=== PATIENT | female | born 1955 | race Caucasian/White ===

== ENCOUNTER 2016-06-15 21:38 | Emergency (ER) | payer BC ==
[2016-06-15 22:29] VITALS: BP 147/99
--- NOTE | 2016-06-15 23:47 | UC ---
General HPI - HPI Summary HPI Summary: The patient comes in today for: 1. Post prandia nausea: Onset: 6 months Palliative/provocative: Rich foods. Quality: Nausea. Region: GI Severity: 0/10 Time: Comes and goes. Associated symptoms: Previous evaluation: None. Event: She had chicken parmeasan tonight. Rich foods will make it worse. She will have nausea after she eats. She will not have any abdominal pain at that time. She ate at 5:30 PM. She is not having nausea at this time. The nausea will last for 5-6 hours and go away. She tolerates foods which are not rich. Fevers: None. Unexpected weight: She does not think so, but the son thinks that she has lost weight. PCP: Cony Barlow. Last visit (physical) in August of 2015 and in Feb for shingles. The patient was very bad before, but by the time I was able to see her, she was feeling back to her normal self. * - History of Current Complaint Chief Complaint: UCGI Stated Complaint: VOMITING Time Seen by Provider: 06/15/16 23:16 Hx Obtained From: Patient - Allergy/Home Medications Allergies/Adverse Reactions: Allergies Allergy/AdvReac Type Severity Reaction Status Date / Time Omeprazole Allergy Severe Airway Verified 09/23/13 23:32 Obstruction Sulfamethoxazole Allergy Intermediate Blisters Verified 09/23/13 23:32 w/Trimethoprim [From Bactrim] PMH/Surg Hx/FS Hx/Imm Hx Previously Healthy: No Endocrine History Of: Denies: Diabetes, Thyroid Disease, Hyperthyroidism, Hypothyroidism, Dyslipidemia Cardiovascular History Of: Denies: Cardiac Disorders, Hypertension, Pacemaker/ICD, Myocardial Infarction , Congestive Heart Failure, Atrial Fibrillation, Deep Vein Thrombosis, Bleeding Disorders Respiratory History Of: Denies: COPD, Asthma, Bronchitis, Pneumonia, Pulmonary Embolism GI/ History Of: Reports: Gastroesophageal Reflux Denies: Ulcer, Gastrointestinal Bleed, Gall Bladder Disease, Kidney Stones, Diverticulitis, Renal Disease, Urosepsis Neurological History Of: Reports: Seizures - When she was younger, but not on medication since her 20's by her report., Migraine - She is on Imetrix. Denies: TIA, CVA, Dementia Psychological History Of: Denies: Anxiety, Depression, Bipolar Disorder, Schizophrenia, Post Traumatic Stress Disorder Cancer History Of: Denies: Lung Cancer, Colorectal Cancer, Breast Cancer, Prostate Cancer, Cervical Cancer - Surgical History Surgical History: Yes Surgery Procedure, Year, and Place: SINUS 12+ YEARS AGO. ROOT CANAL 2 YEARS AGO. C SECTION 1974. HYSTERECTOMY LATE . HYATAL HERNIA REPAIR - Family History Known Family History: Positive: Cardiac Disease Negative: Hypertension - Social History Occupation: Employed Full-time Alcohol Use: Weekly Alcohol Amount: 1-2 glasses on weekend Substance Use Type: None Smoking Status (MU): Never Smoked Tobacco Review of Systems Constitutional: Negative Skin: Negative Eyes: Negative ENT: Negative Respiratory: Negative Cardiovascular: Negative Gastrointestinal: Vomiting Genitourinary: Negative All Other Systems Reviewed And Are Negative: Yes Physical Exam Triage Information Reviewed: Yes Appearance: Well-Appearing, No Pain Distress, Well-Nourished Vital Signs: Initial Vital Signs Temp 97.1 F 06/15/16 22:22 Pulse 77 06/15/16 22:22 Resp 18 06/15/16 22:22 BP 147/99 06/15/16 22:22 Pulse Ox 98 06/15/16 22:22 Vital Signs Reviewed: Yes Eyes: Positive: Conjunctiva Clear. Negative: Discharge ENT: Positive: Hearing grossly normal. Negative: Pharyngeal erythema, Nasal congestion, Nasal drainage, TM bulging, TM dull, TM red, Tonsillar swelling, Tonsillar exudate Dental: Negative: Gross Decay/Caries @, Dental Fracture @ Neck: Positive: Supple, Nontender, No Lymphadenopathy. Negative: Nuchal Rigidity Respiratory: Positive: Chest non-tender, Lungs clear, No respiratory distress. Negative: Rhonchi, Wheezing Cardiovascular: Positive: RRR, No Murmur Abdomen Description: Positive: Nontender, No Organomegaly, Soft. Negative: Distended, Guarding, Pulsatile Mass Musculoskeletal: Positive: Strength Intact, ROM Intact, No Edema Neurological: Positive: Alert, Muscle Tone Normal Psychological: Positive: Age Appropriate Behavior, Consolable Skin: Negative: rashes, breakdown Course/Dx - Course Course Of Treatment: Patient was feeling much better the time I had seen her. She was told that I was concerned about her vomiting history and possible weight loss even though she was feeling OK at this time. I strongly recommended that she see her primary care provider for an evaluation and possible referral to GI. She was told that I am concerned about her possible weight loss and inability to tolerate rich foods and is only able to tolerate small meals throughout the day. She did not want any nausea medication when I had seen her nor any prescription of such medication. - Differential Dx - Multi-Symptom Provider Diagnoses: Post prandial nausea, etiology undertermined--resolved. Discharge - Discharge Plan Condition: Stable Disposition: HOME Patient Education Materials: Acute Nausea and Vomiting (ED) Referrals: Jennifer Barlow, RN LVN [Primary Care Provider] - As Soon As Possible (Please see your primary care provider as soon as you can for a re-evaluation. Avoid rich- fatty foods and eat small meals during the day. If you get worse, please be seen again in the ER.)
== END 2016-06-16 00:15 | disposition home or self-care (01) ==
LOC: UCEAST 21:38
DX: R11.0 Nausea (principal); K21.9 Gastro-esophageal reflux disease without esophagitis; G43.909 Migraine, unspecified, not intractable, without status migrainosus; Z88.2 Allergy status to sulfonamides
CPT/HCPCS: 99211; G0463

== ENCOUNTER 2016-10-29 17:33 | Emergency (ER) | payer BC ==
[2016-10-29 17:44] VITALS: BP 157/91
[2016-10-29] MEDS ORDERED: Al Hydrox/Mg Hydrox/Simet LIQ* 30 ML UDC PO ONE (18:17)
[2016-10-29] MEDS ORDERED: Lidocaine 2% VISCOUS* 15 ML UDC PO ONE (18:19)
--- NOTE | 2016-10-29 18:19 | UC ---
Abdominal Pain Female HPI - HPI Summary HPI Summary: REFLUX SX TODAY. NOT RESPONDING TO HER PROTONIX. WENT WINE TASTING TODAY SHE STATES WHICH MAY HAVE CAUSED IT. FEELS A BURNING IN HER THROAT AND IN HER NOSE. NO CP, SOB, NAUSEA OR SWEATS. - History of Current Complaint Chief Complaint: UCGI Stated Complaint: ACID REFLUX Time Seen by Provider: 10/29/16 18:06 Hx Obtained From: Patient Onset/Duration: Gradual Onset, Lasting Hours, Still Present Timing: Constant Severity Initially: Moderate Severity Currently: Moderate Pain Intensity: 6 Pain Scale Used: 0-10 Numeric Location: Other - THROAT AND NOSE Character: Burning Aggravating Factor(s): Nothing Alleviating Factor(s): Nothing Associated Signs and Symptoms: Positive: Cough. Negative: Fever, Chest Pain, Back Pain, Nausea, Vomiting Allergies/Adverse Reactions: Allergies Allergy/AdvReac Type Severity Reaction Status Date / Time Omeprazole Allergy Severe Airway Verified 10/29/16 17:44 Obstruction Sulfamethoxazole Allergy Intermediate Blisters Verified 10/29/16 17:44 w/Trimethoprim [From Bactrim] Home Medications: Home Medications Pantoprazole Sodium [Protonix] 80 mg PO ONCE 10/29/16 [History Confirmed ] Pantoprazole TAB (NF) [Protonix TAB (NF)] 40 mg PO DAILY 10/29/16 [History Confirmed 10/29/16] PMH/Surg Hx/FS Hx/Imm Hx GI/ History: Gastroesophageal Reflux, Ulcer - Surgical History Surgical History: Yes Surgery Procedure, Year, and Place: SINUS 12+ YEARS AGO. ROOT CANAL 2 YEARS AGO. C SECTION 1974. HYSTERECTOMY LATE . HIATAL HERNIA REPAIR - Family History Known Family History: Positive: Cardiac Disease Negative: Hypertension - Social History Alcohol Use: Weekly Alcohol Amount: 1-2 glasses on weekend Substance Use Type: None Smoking Status (MU): Never Smoked Tobacco Review of Systems Constitutional: Negative Skin: Negative Respiratory: Negative Cardiovascular: Negative Gastrointestinal: Other - REFLUX SX All Other Systems Reviewed And Are Negative: Yes Physical Exam Triage Information Reviewed: Yes Appearance: Well-Appearing, No Pain Distress, Well-Nourished Vital Signs: Initial Vital Signs Temp 97.4 F 10/29/16 17:39 Pulse 70 10/29/16 17:39 Resp 16 10/29/16 17:39 BP 157/91 10/29/16 17:39 Pulse Ox 100 10/29/16 17:39 Vital Signs Reviewed: Yes Eyes: Positive: Conjunctiva Clear ENT: Positive: Hearing grossly normal Neck: Positive: Supple, Nontender, No Lymphadenopathy Respiratory Exam: Normal Cardiovascular Exam: Normal Abdomen Description: Positive: Soft. Negative: CVA Tenderness (R), CVA Tenderness (L), Distended, Guarding Bowel Sounds: Positive: Present Musculoskeletal: Positive: No Edema Neurological: Positive: Alert Psychological: Positive: Age Appropriate Behavior Skin: Negative: rashes Abd Pain Female Course/Dx - Differential Dx/Diagnosis Provider Diagnoses: REFLUX Discharge - Discharge Plan Condition: Stable Disposition: HOME Prescriptions: Lidocaine 2% VISCOUS* [Xylocaine 2% Viscous*] 15 ml PO ONCE PRN #30 ml PRN Reason: Pain Patient Education Materials: Gastroesophageal Reflux Disease (ED) Referrals: Jennifer Barlow NP [Primary Care Provider] - 1 Week Additional Instructions: YOU WERE IMPROVED AFTER A GI COCKTAIL CONSISTING OF MAALOX PLUS AND VISCOUS LIDOCAINE. IF YOUR SYMPTOMS RECUR OKAY TO TAKE 30ML OTC MAALOX PLUS AND 15ML VISCOUS LIDOCAINE. IF YOU NEED TO DO THIS I WOULD RECOMMEND YOU FOLLOW-UP WITH YOUR PCP OR GI TO DETERMINE IF THERE IS ANY UNDERLYING REASON THAT YOUR REFLUX IS WORSENING. YOUR BLOOD PRESSURE WAS ELEVATED TODAY. THIS MAY BE DUE TO YOUR ACUTE CONDITION. MONITOR AND FOLLOW-UP WITH YOUR PCP WITHIN 4 WEEKS IF IT HAS NOT RETURNED TO NORMAL.
== END 2016-10-29 19:20 | disposition home or self-care (01) ==
LOC: UCEAST 17:33
DX: K21.9 Gastro-esophageal reflux disease without esophagitis (principal); R05 Cough; Z88.2 Allergy status to sulfonamides; Z88.8 Allergy status to other drugs, medicaments and biological substances
CPT/HCPCS: 99212; A9270-GY; G0463

== ENCOUNTER 2017-01-23 14:48 | Emergency (ER) | payer BC ==
[2017-01-23 14:57] VITALS: BP 116/71
--- NOTE | 2017-01-23 15:54 | UC ---
Respiratory Complaint HPI - HPI Summary HPI Summary: 61 yo female with about a week hx of sinus pain/ear ache and cough now with about 2 days of dysuria/urgency /frequency - History of Current Complaint Chief Complaint: UCRespiratory Stated Complaint: URI Time Seen by Provider: 01/23/17 15:43 Hx Obtained From: Patient Onset/Duration: Gradual Onset, Lasting Days Timing: Constant Severity Initially: Mild Severity Currently: Moderate Pain Intensity: 3 Pain Scale Used: 0-10 Numeric Character: Cough: Nonproductive Aggravating Factors: Nothing Alleviating Factors: Nothing Associated Signs And Symptoms: Positive: URI, Nasal Congestion, Sinus Discomfort - Allergies/Home Medications Allergies/Adverse Reactions: Allergies Allergy/AdvReac Type Severity Reaction Status Date / Time Omeprazole Allergy Severe Airway Verified 01/23/17 14:57 Obstruction Sulfamethoxazole Allergy Intermediate Blisters Verified 01/23/17 14:57 w/Trimethoprim [From Bactrim] PMH/Surg Hx/FS Hx/Imm Hx Previously Healthy: Yes - Surgical History Surgical History: Yes Surgery Procedure, Year, and Place: SINUS 12+ YEARS AGO. ROOT CANAL 2 YEARS AGO. C SECTION 1974. HYSTERECTOMY LATE . HIATAL HERNIA REPAIR - Family History Known Family History: Positive: Cardiac Disease Negative: Hypertension - Social History Alcohol Use: Occasionally Alcohol Amount: 1-2 glasses on weekend Substance Use Type: None Smoking Status (MU): Never Smoked Tobacco Review of Systems Constitutional: Negative Skin: Negative Eyes: Negative ENT: Nasal Discharge, Sinus Congestion, Sinus Pain/Tenderness Respiratory: Cough Cardiovascular: Negative Gastrointestinal: Negative Genitourinary: Dysuria, Frequency, Urgency Motor: Negative Neurovascular: Negative Musculoskeletal: Negative Neurological: Negative Psychological: Negative Is Patient Immunocompromised?: No All Other Systems Reviewed And Are Negative: Yes Physical Exam Triage Information Reviewed: Yes Appearance: Well-Appearing, No Pain Distress, Well-Nourished Vital Signs: Initial Vital Signs Temp 97.7 F 01/23/17 14:54 Pulse 82 01/23/17 14:54 Resp 18 01/23/17 14:54 BP 116/71 01/23/17 14:54 Pulse Ox 98 01/23/17 14:54 Eye Exam: Normal Eyes: Positive: Conjunctiva Clear ENT: Positive: Hearing grossly normal, Nasal congestion, Nasal drainage, TM bulging - Right, TM red - left, Sinus tenderness, Uvula midline Neck: Positive: Supple, Nontender, No Lymphadenopathy Respiratory: Positive: Lungs clear, Normal breath sounds, No respiratory distress, No accessory muscle use Cardiovascular: Positive: RRR, No Murmur Abdomen Description: Positive: Nontender. Negative: CVA Tenderness (R), CVA Tenderness (L) Bowel Sounds: Positive: Present Musculoskeletal: Positive: ROM Intact, No Edema Neurological: Positive: Alert Psychological Exam: Normal Skin Exam: Normal UC Diagnostic Evaluation - Laboratory O2 Sat by Pulse Oximetry: 98 - normal/not hypoxic Respiratory Course/Dx - Course Course Of Treatment: udip +++ RBCs, +++ leuks - Differential Dx/Diagnosis Provider Diagnoses: otitis media. ?sinusitis. UTI Discharge - Discharge Plan Condition: Stable Disposition: HOME Prescriptions: ceFUROXime TAB(*) [Ceftin TAB(*)] 250 mg PO BID #20 tab Patient Education Materials: Urinary Tract Infection in Women (ED), Otitis Media (ED) Referrals: Jennifer Barlow NP [Primary Care Provider] - If Needed Additional Instructions: A urine culture is pending I have tried to pick an antibiotic with a good chanced of being effective for both your problems recheck Friday if not improved
== END 2017-01-23 15:57 | disposition home or self-care (01) ==
LOC: UCEAST 14:48
DX: H66.90 Otitis media, unspecified, unspecified ear (principal); N39.0 Urinary tract infection, site not specified; B96.20 Unspecified Escherichia coli [E. coli] as the cause of diseases classified elsewhere
CPT/HCPCS: 81003; 87077; 87086; 87186; 99212; G0463

== ENCOUNTER 2017-10-02 07:10 | Emergency (ER) | payer BC ==
--- OUTSIDE RECORDS SUMMARY | 2017-10-02 07:17 | XMS REPORT ---
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 Active Onset: 03/07/2014 Regular astigmatism Calvin Aguero O.D. Active Onset: 03/07/2014 Hypermetropia Calvin Aguero O.D. 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 Lyndsay Duncan O.D. Active Onset: 03/06/[address] Lyndsay Duncan O.D. Active Family History Date Family Member(s) Problem(s) Comments Father Noncontributory Mother Cancer Breast Mother Thyroid Disease Social History Type Date Description Comments ETOH Use Occasionally consumes alcohol Smoking Patient has never smoked Allergies, Adverse Reactions, Alerts Date Description Reaction Status Severity Comments 03/06/2013 Bactrim active 03/07/2014 Omeprazole active Medications Medication Date Status Form Strength Qnty SIG Indications Ordering Provider Lotemax 09/04/ Active Ointment 0.5% 1tube apply H01.134 mike Brunner M.D. lid tid x 1 wk Restasis 01/31/ Active Emulsion 0.05% 180un one drop Calvin 2017 its twice Jay, per day OD both eyes Vivelle-Dot /00/ Active Patches 0.05mg/24 Unknown 0000 Biweek HR Noritate / Active Cream 1% Unknown 0000 Sumatriptan / Active Tablets 50mg Unknown Succinate 0000 Pantoprazole / Active Tablets DR 40mg Unknown Sodium 0000 Estradiol / Active Patches 0.05mg/24 Unknown 0000 Biweek HR Restasis 01/29/ Hx Emulsion 0.05% 16.5m 1 drop Calvin Multidose 2017 - l both Pierre, 01/29/ eyes OD 2017 twice a day Restasis 01/29/ Hx Emulsion 0.05% 60uni 1 drops Calvin 2016 - ts both Jay, 01/31/ eyes OD 2017 twice a day Restasis 12/18/ Hx Emulsion 0.05% 16.5m 1 drop Calvin Multidose 2016 - l both Pierre, 01/29/ eyes OD 2016 twice a day Fluorometholone 12/11/ Hx Suspension 0.1% 5ml 1gtt tid Calvin 2017 - OU x 1 Jay, 01/29/ week OD 2017 Doxycycline 12/11/ Hx Capsules 50mg 14cap take one Peter Monohydrate 2016 - s capsule Joiner, 12/18/ daily x M.D. 2016 2 weeks Ocusoft Lid Scrub 03/06/ Hx Solution 1ml Apply 373.12 DR. Lyndsay Rodrigues 2013 - once to [place], 03/07/ twice O.D. 2014 daily to lids of both eyes Pantoprazole / Hx Tablets DR 40mg Unknown Sodium 0000 - 2016 Clindamycin HCL / Hx Capsules 300mg Unknown 0000 - 2016 Amoxicillin / Hx Capsules 500mg Unknown 0000 - 2016 Penicillin V / Hx Tablets 500mg Unknown Potassium 0000 - 2016 Vivelle-Dot 00/ Hx Patches 0.025mg/2 Unknown 0000 - Biweek 4HR 2016 Vital Signs Date Vital Result Comment 05/13/2017 Intraocular Pressure Right Eye 14 mmHg Intraocular Pressure Left Eye 14 mmHg 12/18/2016 Intraocular Pressure Right Eye 15 mmHg Intraocular Pressure Left Eye 15 mmHg 12/11/2016 Intraocular Pressure Right Eye 13 mmHg Intraocular Pressure Left Eye 13 mmHg 04/26/2015 Intraocular Pressure Right Eye 12 mmHg Intraocular Pressure Left Eye 13 mmHg 03/07/2014 Intraocular Pressure Right Eye 12 mmHg Intraocular Pressure Left Eye 12 mmHg 03/06/2013 Intraocular Pressure Right Eye 12 mmHg Intraocular Pressure Left Eye 12 mmHg Results Description No Information Procedures Date CPT Code Description Status 09/04/2017 50933 Eye Exam Est Intermediate Completed 05/13/2017 13990 Refraction Completed 05/13/2017 75607 Eye Exam Est Intermediate Completed 01/29/2017 14595 Eye Exam Est Intermediate Completed 12/11/2016 09100 Eye Exam Est Intermediate Completed 04/26/2015 43818 Refraction Completed 04/26/2015 64957 Eye Exam Est Intermediate Completed 05/09/2014 300 Contact Lens Fit NC Completed 04/18/2014 300 Contact Lens Fit NC Completed 03/18/2014 304 Contact Lens Fit $150 Completed 03/07/2014 77355 Eye Exam Est Comprehensive Completed 03/07/2014 06728 Refraction Completed 03/06/2013 29244 Refraction Completed 03/06/2013 32645 Eye Exam Est Comprehensive Completed 12/25/2009 75010 Refraction Completed 12/25/2009 63087 Eye Exam Est Comprehensive Completed 04/03/2009 65879 Eye Exam Est Intermediate Completed 03/27/2009 40200 Eye Exam Est Intermediate Completed 11/05/2008 86268 Refraction Completed 11/05/2008 27171 Eye Exam New Comprehensive Completed Encounters Type Date Location Provider CPT E/M Dx Office Visit 12/18/2016 11:30a [place] [address] H16.223 H01.021 Plan of Care 09/04/2017 - Chris Joiner M.D.H01.134 Eczematous dermatitis of left upper eyelidNew Medication:Lotemax 0.5 %Follow up:1 wk f/u
[2017-10-02 07:22] VITALS: BP 144/81
--- NOTE | 2017-10-02 07:27 | UC ---
Upper Extremity HPI - HPI Summary HPI Summary: This is Josef sawyer documenting for attending Costa Cam MD. This patient is a 62 year old F presenting to [facility] with a chief complaint of right shoulder pain that began last night. Pt states she was walking last night when she tripped and struck the pavement with her shoulder. The patient rates the pain 8/10 in severity. Symptoms alleviated by Tylenol. Pts last dose was this morning at 0530. Along with this the patient has applied ice throughout the night. Patient denies wrist pain, neck pain, head injury, numbness, and tingling - History of Current Complaint Stated Complaint: SHOULDER INJURY Time Seen by Provider: 10/02/17 07:16 Hx Obtained From: Patient Onset/Duration: Lasting Days - 1, Still Present Severity Initially: Moderate Severity Currently: Moderate Pain Intensity: 8 Pain Scale Used: 0-10 Numeric Location Of Pain: Is Discrete @ - right shoulder Aggravating Factor(s): Movement Associated Signs And Symptoms: Positive: Negative - wrist pain, neck pain, head injury, numbness, and tingling. - Allergies/Home Medications Allergies/Adverse Reactions: Allergies Allergy/AdvReac Type Severity Reaction Status Date / Time omeprazole Allergy Airway Verified 10/02/17 07:23 Obstruction sulfamethoxazole Allergy Blisters Verified 10/02/17 07:23 [From Bactrim] trimethoprim [From Bactrim] Allergy Blisters Verified 10/02/17 07:23 Home Medications: Home Medications Acetaminophen TAB* [Tylenol TAB*] 650 mg PO Q4H PRN 10/02/17 [History Confirmed 10/02/17] Cholecalciferol TAB* [Vitamin D TAB*] 1,000 unit PO DAILY 10/02/17 [History Confirmed 10/02/17] PMH/Surg Hx/FS Hx/Imm Hx GI/ History: Gastroesophageal Reflux Other History Of: Negative For: Anticoagulant Therapy - Surgical History Surgical History: Yes Surgery Procedure, Year, and Place: SINUS 12+ YEARS AGO. ROOT CANAL 2 YEARS AGO. C SECTION 1974. HYSTERECTOMY LATE . HIATAL HERNIA REPAIR - Family History Known Family History: Positive: Cardiac Disease Negative: Hypertension - Social History Alcohol Use: Occasionally Alcohol Amount: 1-2 glasses on weekend Substance Use Type: None Smoking Status (MU): Never Smoked Tobacco Review of Systems Musculoskeletal: Other: - right shoulder pain Neurological: Negative - numbness All Other Systems Reviewed And Are Negative: Yes Physical Exam - Summary Physical Exam Summary: General: well-appearing, no pain distress Skin: warm, color reflects adequate perfusion, dry Head: normal Eyes: EOMI, ZEKE ENT: normal Neck: supple, nontender Respiratory: CTA, breath sounds present Cardiovascular: RRR Abdomen: soft, nontender Bowel: present Musculoskeletal: Pt is holding right arm at a neutral position close to her body the elbow is at 90. Her distal clavicle is TTP as well as the proximal humerus. There is no ecchymosis. The elbow, wrist, and fingers have full rom full ROM. There is nml sensations, pulses, and capillary refill. ROM of shoulder not attempt secondary to pain Neurological: sensory/motor intact, A&O x3 Psychological: affect/mood appropriate Triage Information Reviewed: Yes Vital Signs Reviewed: Yes Diagnostics - Radiology Shoulder Xray Radiology Interpretation Completed By: Radiologist - Negative examination. Dr. Cam has reviewed this report. Upper Extremity Course/Dx - Course Course Of Treatment: BP noted and advised to follow up with PCP. NEUROVASCULAR INTACT. ROTATOR CUFF VERSES AC JOINT VERSES CONTUSION INJURY. F/U PMD; RECHECK SOONER IF WORSE. - Differential Dx/Diagnosis Provider Diagnoses: RIGHT SHOULDER PAIN. Elevated blood pressure without a previous diagnoses of hypertension Discharge - Sign-Out/Discharge Documenting (check all that apply): Patient Departure - Discharge Plan Condition: Stable Disposition: HOME Prescriptions: HYDROcodone/ACETAMIN 5-325 MG* [Escalante 5-325 TAB*] 1 tab PO Q4H PRN #20 tab MDD 6 PRN Reason: Pain Patient Education Materials: Shoulder Pain (ED) Referrals: Jolly Patterson MD [Primary Care Provider] - Additional Instructions: FOLLOW UP WITH YOUR DOCTOR. DO THE RANGE OF MOTION EXERCISES DISCUSSED TO HELP AVOID FROZEN SHOULDER. GET RECHECKED FOR ANY WORSENING OF YOUR CONDITION OR QUESTIONS OR CONCERNS. Your blood pressure was elevated during todays visit; please follow up with your primary care provider within a week for further evaluation. - Billing Disposition and Condition Condition: STABLE Disposition: Home Attestation Statement Scribe Attestation: This is digna Bearden documenting for attending Costa Cam MD. User Type: Provider with Scribe Provider Attestation: The documentation recorded by the scribe accurately reflects the service I personally performed and the decisions made by me.
--- NOTE | 2017-10-02 08:05 | RAD ---
INDICATION: Right shoulder pain COMPARISON: None TECHNIQUE: AP, lateral, and oblique views were obtained. FINDINGS: The bony structures, joint spaces, and soft tissues are normal for age. IMPRESSION: NEGATIVE EXAMINATION.
== END 2017-10-02 08:45 | disposition home or self-care (01) ==
LOC: UCEAST 07:10
DX: W01.0XXA Fall on same level from slipping, tripping and stumbling without subsequent striking against object, initial encounter (principal); Y93.01 Activity, walking, marching and hiking; Y92.9 Unspecified place or not applicable; M25.511 Pain in right shoulder; R03.0 Elevated blood-pressure reading, without diagnosis of hypertension; Z88.8 Allergy status to other drugs, medicaments and biological substances; Z88.1 Allergy status to other antibiotic agents
CPT/HCPCS: 99213; G0463

== ENCOUNTER 2018-05-31 16:02 | Inpatient (IN) | payer BC ==
[2018-05-31] MEDS ORDERED: levETIRAcetam IV* 1,000 MG in NS 0.9% 100 ML* 100 ML IVPB ONE (16:08)
[2018-05-31] MEDS ORDERED: NS 0.9% 1000 ML** 1,000 ML IV ONE (16:08)
--- NOTE | 2018-05-31 16:13 | ED ---
Neurological HPI - HPI Summary HPI Summary: Patient is a 63 y/o female brought in by EMS who presents to the ED s/p seizure- like activity. At 5:00 this morning she had an unwitnessed seizure with LOC. At 12:45 today she had a witnessed seizure that lasted about one minute. At 13:45 she had another witnessed seizure that lasted about 30 seconds. As per son, her arms were contractured but she was not making any motions. Her eyes rolled backwards and she was not breathing. Afterwards she was "out of it" for about 30 seconds. Upon EMS arrival patient was A&Ox3. Patient now c/o nausea, generalized weakness, and anxiety. She denies any headache, cough, congestion, rhinorrhea, abdominal pain, CP, SOB, or arthralgia. Patient has a hx of tonic clonic seizures about 30 years ago. At the time an EEG revealed minimal abnormal activity and she was never placed on seizure medications. She also notes that lately shes been having some dizzy spells during which she feels near-syncopal. PMHx migraine. - History of Current Complaint Stated Complaint: "SEIZURE PER EMS" Hx Obtained From: Patient, EMS Onset/Duration: Sudden Onset, Started hours ago - Today 5:00 12:45 and 13:45, Resolved Timing: Intermittent Episodes Lasting: - 30-60 seconds Current Severity: Mild Neurological Deficit Location: Generalized Pain Intensity: 1 Pain Scale Used: 0-10 Numeric Character: Weak Seizure Character: Generalized Aggravating: Unknown Alleviating: Spontanious Resolution Associated Signs and Symptoms: Positive: Weakness, Loss of Consciousness, Nausea /Vomiting. Negative: Headache, Chest Pain, Shortness of Breath Related Hx: Seizure - hx in her 30s - Allergy/Home Medications Allergies/Adverse Reactions: Allergies Allergy/AdvReac Type Severity Reaction Status Date / Time omeprazole Allergy Airway Verified 10/02/17 07:23 Obstruction sulfamethoxazole Allergy Blisters Verified 10/02/17 07:23 [From Bactrim] trimethoprim [From Bactrim] Allergy Blisters Verified 10/02/17 07:23 PMH/Surg Hx/FS Hx/Imm Hx Endocrine/Hematology History: Denies: Hx Anticoagulant Therapy, Hx Diabetes, Hx Thyroid Disease Cardiovascular History: Denies: Hx Congestive Heart Failure, Hx Deep Vein Thrombosis, Hx Hypertension , Hx Myocardial Infarction, Hx Pacemaker/ICD Respiratory History: Denies: Hx Asthma, Hx Chronic Obstructive Pulmonary Disease (COPD), Hx Lung Cancer, Hx Pneumonia, Hx Pulmonary Embolism GI History: Reports: Hx Ulcer Denies: Hx Gall Bladder Disease, Hx Gastrointestinal Bleed, Hx Urosepsis History: Denies: Hx Kidney Stones, Hx Renal Disease Sensory History: Denies: Hx Hearing Aid Neurological History: Reports: Hx Migraine - She is on Imetrix., Hx Seizures - When she was younger, but not on medication since her 20's by her report. Denies: Hx Dementia, Hx Transient Ischemic Attacks (TIA) Psychiatric History: Denies: Hx Anxiety, Hx Depression, Hx Panic Disorder, Hx Schizophrenia, Hx Bipolar Disorder - Cancer History Hx Chemotherapy: No Hx Radiation Therapy: No - Surgical History Surgery Procedure, Year, and Place: SINUS 12+ YEARS AGO. ROOT CANAL 2 YEARS AGO. C SECTION 1974. HYSTERECTOMY LATE . HIATAL HERNIA REPAIR Infectious Disease History: No Infectious Disease History: Reports: Hx Shingles - 02/2016 Denies: Traveled Outside the [place] in Last 30 Days - Family History Known Family History: Positive: Cardiac Disease Negative: Hypertension - Social History Alcohol Use: Occasionally Alcohol Amount: 1-2 glasses on weekend Hx Substance Use: No Substance Use Type: Reports: None Hx Tobacco Use: No Smoking Status (MU): Never Smoked Tobacco Review of Systems Negative: Nasal Discharge, Other - congestion Negative: Chest Pain Negative: Shortness Of Breath, Cough Positive: Nausea. Negative: Abdominal Pain Negative: Arthralgia Neurological: Other - LOC Positive: Weakness - generalized. Negative: Headache Positive: Anxious All Other Systems Reviewed And Are Negative: Yes Physical Exam - Summary Physical Exam Summary: Appearance: well appearing, no pain distress Skin: warm, dry, reflects adequate perfusion Head/face: normal Eyes: EOMI, ZEKE ENT: mucous membranes moist, no tongue injuries Neck: supple, non-tender Respiratory: CTA, breath sounds present Cardiovascular: RRR, pulses symmetrical Abdomen: non-tender, soft Bowel Sounds: present Musculoskeletal: normal, strength/ROM intact, no joint pains Neuro: normal, sensory motor intact, A&Ox3 Triage Information Reviewed: Yes Vital Signs On Initial Exam: Initial Vitals Temp Pulse Resp BP Pulse Ox 97.2 F 76 8 158/88 99 05/31/18 16:03 05/31/18 16:03 05/31/18 16:03 05/31/18 16:03 05/31/18 16:03 Vital Signs Reviewed: Yes Diagnostics - Vital Signs Vital Signs Temp Pulse Resp BP Pulse Ox 05/31/18 16:03 97.2 F 76 8 158/88 99 - Laboratory Result Diagrams: 05/31/18 16:25 05/31/18 16:25 Lab Statement: Any lab studies that have been ordered have been reviewed, and results considered in the medical decision making process. - Radiology CXR Radiology Interpretation Completed By: Radiologist Summary of Radiographic Findings: No radiographic abnormality. ED physician reviewed radiology report. - EKG 16:16 Cardiac Rate: NL - 73 bpm EKG Rhythm: Sinus Rhythm ST Segment: Normal Summary of EKG Findings: Nl axis, nl intervals Re-Evaluation - Re-Evaluation First Eval Re-Evaluation Time: 16:30 Change: Worse Comment: Pt had another "seizure" episode. She became tachycardic then went into bigeminy, followed by a greater than 30 second asystolic period. She then returned into NSR then woke up. Second Eval Re-Evaluation Time: 16:50 Change: Unchanged Comment: Discussed plan of care with patient. She denies any hx of Lyme dz. Course/Dx - Course Course Of Treatment: Nurse's notes reviewed. Patient with a history and her 30s of seizure disorder. Not on meds for many many years. Today she reports 3 episodes of seizure/syncope with abrupt recovery. She has not been incontinent nor has she injured her tongue. During her course here, she felt a episode coming on and she subsequently had a witnessed syncope. During that time the patient had approximately 30 seconds of asystole. She probably return to a normal rhythm with a normal EKG. Discussed the case with the torpedo specialist, especially with regard to placement of a pacemaker. He feels as though transcutaneous pacer pads on the patient is sufficient for now and he expects to place a pacemaker in the morning. The patient will be observed in the ICU throughout the night. Hospitalist is at the bedside evaluating the patient. - Differential Dx Differential Diagnoses Neuro: Positive: Other - Seizure versus syncope versus vasovagal reaction versus medication reaction versus overdose versus sick sinus syndrome - Diagnoses Provider Diagnoses: Syncope, Sick sinus syndrome - Physician Notifications Discussed Care Of Patient With: Dylon Watson Time Discussed With Above Provider: 16:58 Instructed by Provider To: Other - Place pacer pads on the pt as a precaution. She will get a pacemaker placed tomorrow. Admit to hospitalist. At 17:05 Dr. Samuel accepts for admission. - Critical Care Time Critical Care Time: 30-74 min - Critical care time is exclusive of separately billable procedures Discharge - Sign-Out/Discharge Documenting (check all that apply): Patient Departure - Admit Patient Received Moderate/Deep Sedation with Procedure: No - Discharge Plan Condition: Guarded Disposition: ADMITTED TO [facility] Referrals: Jolly Patterson MD [Primary Care Provider] - - Billing Disposition and Condition Condition: GUARDED Disposition: Admitted to [facility] - Attestation Statements Document Initiated by Clementeibe: Yes Documenting Scribe: Annette Pennington Provider For Whom Mickey is Documenting (Include Credential): Daniel Pascual MD Scribe Attestation: Annette Alvarez, scribed for Daniel Pascual MD on 05/31/18 at 1829. Scribe Documentation Reviewed: Yes Provider Attestation: The documentation as recorded by the clementeibAnnette leslie accurately reflects the service I personally performed and the decisions made by , Daniel Pascual MD Status of Scribe Document: Viewed
[2018-05-31 16:34] LABS: ABS Basophils 0 10^3/ul (0-0.2); ABS Eosinophils 0.1 10^3/ul (0-0.6); ABS Lymphocytes 1.2 10^3/ul (1.0-4.8); ABS Monocytes 0.4 10^3/ul (0-0.8); ABS Neutrophils 4.6 10^3/ul (1.5-7.7); ABS Nucleated RBC 0 10^3/ul; Eosinophil % 0.9 %; Hematocrit 38 % (33-41); Hemoglobin 12.9 g/dL (12.0-16.0); Lymphocyte % 19.7 %; Mean Corpuscular HGB Conc 34 g/dL (31-36); Mean Corpuscular Hemoglobin 32 pg (27-31); Mean Corpuscular Volume 94 fL (80-97); Mean Platelet Volume 7.7 fL (7.4-10.4); Nucleated Red Blood Cells % 0; Platelet Count 231 10^3/uL (150-450); Red Blood Count 4.05 10^6 /uL (3.70-4.87); Red Cell Distribution Width 13 % (10.5-15); White Blood Count 6.3 10^3/uL (3.5-10.8)
[2018-05-31 16:39] LABS: INR 0.89 (0.77-1.02)
[2018-05-31 16:51] LABS: ALT 17 U/L (7-52); AST 20 U/L (13-39); Albumin 4.1 g/dL (3.2-5.2); Albumin/Globulin Ratio 1.5 (1-3); Alkaline Phosphatase 64 U/L (34-104); Anion Gap 7 mmol/L (2-11); BUN/Creatinine Ratio 18.8 (8-20); Blood Urea Nitrogen 19 mg/dL (6-24); CO2 Carbon Dioxide 24 mmol/L (22-32); Calcium 9.1 mg/dL (8.6-10.3); Chloride 106 mmol/L (101-111); Creatine Kinase 120 U/L (10-223); EGFR African American 67.4 (>60); EGFR Non-African American 55.7 (>60); Globulin 2.7 g/dL (2-4); Glucose 175 mg/dL (70-100); Magnesium 2.1 mg/dL (1.9-2.7); Potassium 3.8 mmol/L (3.5-5.0); Sodium 137 mmol/L (135-145); Total Protein 6.8 g/dL (6.4-8.9)
[2018-05-31 17:13] LABS: Alcohol < 10 mg/dL (<10)
[2018-05-31 17:39] LABS: TSH (Thyroid Stimulating Horm) 5.17 mcIU/mL (0.34-5.60)
--- NOTE | 2018-05-31 18:42 | ADMNOTE ---
Subjective Date of Service: 05/31/18 Interval History: ADMISSION HISTORY AND PHYSICAL EXAM: Allergies Allergy/AdvReac Type Severity Reaction Status Date / Time omeprazole Allergy Airway Verified 10/02/17 07:23 Obstruction sulfamethoxazole Allergy Blisters Verified 10/02/17 07:23 [From Bactrim] trimethoprim [From Bactrim] Allergy Blisters Verified 10/02/17 07:23 Home Medications Medication Instructions Recorded Confirmed Type Estradiol [Vivelle-Dot] 0.05 mg TRANSDERM Q72H 09/24/13 10/02/17 History Pantoprazole TAB * [Protonix TAB*] 40 mg PO DAILY 10/29/16 10/02/17 History Acetaminophen TAB* [Tylenol TAB*] 650 mg PO Q4H PRN 10/02/17 10/02/17 History Cholecalciferol TAB* [Vitamin D 1,000 unit PO DAILY 10/02/17 10/02/17 History TAB*] HYDROcodone/ACETAMIN 5-325 MG* 1 tab PO Q4H PRN #20 tab MDD 6 10/02/17 Rx [[place] 5-325 TAB*] HPI: The patient has been having lightheaded spells for about a year. SHe denies falling, is not sure if she passed out. She thought she had vertigo. Today she had 3 spells. Her son saw one spell and insisted she come to the ED. She had another spell in the ED, during which she had asystole for 30 seconds, and recovered without any intervention. She now feels well although understandably anxious. Family History: Findings - Both parents living. No sibs with heart disease. SOn is [employer]. Social History: Findings - , lives alone. 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 Son Michael is her SDM. Smoked until age 33. No alcohol abuse Past Medical History: Findings - HH repair, , "tummy tuck" Review of Systems - Measurements Intake and Output: Intake and Output Last 24 Hours 05/29/18 05/30/18 05/31/18 06/01/18 06:59 06:59 06:59 06:59 Weight 127 lb - Review of Systems Constitutional Symptoms: Negative: Weight Gain, Weight Loss, Weakness, Fatigue, Fever, Night Sweats, Unexplained Falls, Other Dermatology: Positive: Normal HEENT: Positive: Normal Eyes: Positive: Normal Thyroid: Positive: Normal Pulmonary: Positive: Normal Gastroenterology: Positive: Nausea - with syncopal episodes Genital - Urinary: Positive: Normal Genitourinay - Female: Positive: Menopause Musculoskeletal: Negative: Joint Pain, Joint Stiffness, Arthritis, Osteoporosis, Low Back Pain , Sciatica, Joint Deformities, Kyphoscoliosis, Other Endocrinology: Positive: Normal Hematologic/Lymphatic: Negative: Anemia, Easy Brusing, Hx Leukemia, Hx Lymphoma, Use of Anticoagulant, Use of Antiplatelet Drugs, Other Neurology: Positive: Other - syncope Psychiatry: Positive: Normal Allergic/Immunologic: Negative: Hx Anaphylaxis, Hx Angioedema, Hx Environmental, Hx Seasonal, Athsma, Hx HIV, Immunocompromise, Swollen Glands LymphNodes, Other Objective Vital Signs - 8 hr 05/31/18 05/31/18 05/31/18 16:03 16:08 16:10 Temperature 97.2 F Pulse Rate 76 80 80 Respiratory 8 21 20 Rate Blood Pressure 158/88 156/88 (mmHg) O2 Sat by Pulse 99 98 98 Oximetry 05/31/18 05/31/18 05/31/18 16:46 16:58 17:00 Temperature Pulse Rate 65 79 74 Respiratory 17 19 19 Rate Blood Pressure 153/82 144/85 (mmHg) O2 Sat by Pulse 99 100 100 Oximetry 05/31/18 05/31/18 05/31/18 17:09 17:19 17:29 Temperature Pulse Rate 85 77 93 Respiratory 23 24 19 Rate Blood Pressure 144/85 153/90 160/89 (mmHg) O2 Sat by Pulse 100 100 100 Oximetry 05/31/18 05/31/18 05/31/18 17:39 17:59 18:01 Temperature Pulse Rate 79 82 74 Respiratory 25 19 16 Rate Blood Pressure 148/84 139/83 (mmHg) O2 Sat by Pulse 100 100 100 Oximetry 05/31/18 18:09 Temperature Pulse Rate 94 Respiratory 28 Rate Blood Pressure 166/95 (mmHg) O2 Sat by Pulse 100 Oximetry Oxygen Devices in Use Now: None Appearance: Alert, supine on ED stretcher. In good spirits. Looks comfortable. Eyes: No Scleral Icterus Ears/Nose/Mouth/Throat: Clear Oropharnyx, Mucous Membranes Moist Neck: NL Appearance and Movements; NL JVP, No Thyroid Enlargement, Masses Respiratory: Symmetrical Chest Expansion and Respiratory Effort, Clear to Auscultation, Clear to Percussion Cardiovascular: NL Sounds; No Murmurs; No JVD, RRR, No Edema, - Extremities: No Edema, No Clubbing, Cyanosis, - Skin: No Rash or Ulcers, No Nodules or Sclerosis, - Neurological: Alert and Oriented x 3, NL Sensation Result Diagrams: 05/31/18 16:25 05/31/18 16:25 Assess/Plan/Problems-Billing Assessment: - Patient Problems (1) Asystole Current Visit: Yes Status: Acute Code(s): I46.9 - CARDIAC ARREST, CAUSE UNSPECIFIED SNOMED Code(s): 634833345 Comment: 30 seconds documented in ED. Note nl TSH. Pt exercises daily, lives in a townhouse with no exposure to likely tick areas this year. Discussed with Dr. Watson. External pacer in place, ICU care. Plan PPM 06/01. (2) GERD (gastroesophageal reflux disease) Current Visit: Yes Status: Acute Code(s): K21.9 - GASTRO-ESOPHAGEAL REFLUX DISEASE WITHOUT ESOPHAGITIS SNOMED Code(s): 380496154 Comment: Continue pantoprazole. Note omeprazole allergy. (3) Migraines Current Visit: Yes Status: Acute Code(s): G43.909 - MIGRAINE, UNSP, NOT INTRACTABLE, WITHOUT STATUS MIGRAINOSUS SNOMED Code(s): 99789662 Comment: Her estrogen patch is used to prevent migraines.
[2018-05-31] MEDS ORDERED: HYDROcodone/ACETAMIN 5-325 MG* 1 TAB PO PRN (18:53)
[2018-05-31] MEDS ORDERED: ESTRADIOL 0.05 MG TRANSDERM SCH (19:00)
[2018-05-31 21:17] LABS: Urine Appearance Clear; Urine Bilirubin Negative (Negative); Urine Blood Negative (Negative); Urine Color Straw; Urine Glucose 1+(50 mg/dL) (Negative); Urine Ketones Negative (Negative); Urine Nitrite Negative (Negative); Urine Protein Negative (Negative); Urine Specific Gravity 1.006 (1.010-1.030); Urine Urobilinogen Negative (Negative)
--- NOTE | 2018-05-31 21:52 | CONS ---
CC: Dr. Mckeon; Dr. Watson * CARDIOLOGY CONSULT: DATE OF CONSULT: 05/31/18 HISTORY OF PRESENT ILLNESS: I was asked by hospitalist service to see this 63- year- old female patient, who presented to the emergency room with multiple syncopal episodes today. The patient who is "healthy" without a history of myocardial infarction, no coronary artery disease, no history of congestive heart failure, no history of diabetes, and no history of systemic arterial hypertension, although blood pressure was mildly elevated in the emergency room , apparently had multiple syncopal episodes as per the family members who were at bedside. They witnessed her at home while she was sitting, then she will just pass out for up to a minute, multiple times today. In the emergency room, she was brought in, she was in normal sinus rhythm, then there was a witnessed syncope and then the rhythm strip documented a 30-second asystole, then the patient did come back. There was no documented seizure activity before or after. No nausea, no vomiting, no hematochezia, no chest pain. According to the family members, it appears to be that she feels dizzy and then she feels she is going to pass out before this. She had no fever, no chills, no swelling of the lower extremities, no orthopnea, no hematochezia, no skin rash, no abdominal pain. No history to suggest Lyme disease. No thyroid disease. Her TSH was normal. She will be admitted to the intensive care unit. Currently, she is hemodynamically stable without any symptoms. PAST MEDICAL HISTORY: History of gastroesophageal reflux disease. PAST SURGICAL HISTORY: History of section as well as history of gallbladder. ALLERGIES: She is allergic to BACTRIM according to the patient and also she is allergic to omeprazole. FAMILY HISTORY: No family history of premature coronary artery disease. SOCIAL HISTORY: She gives no history of smoking, no drinking, no history of illicit drug use. REVIEW OF SYSTEMS: Review of all other systems essentially is negative. PHYSICAL EXAM: On exam, she is awake, alert, and oriented. She is not in acute distress. Her vitals include a blood pressure of 160/89 initially, pulse was 93 initially, and she is afebrile with a temperature of 97.2. Head and Neck Exam: Normocephalic, atraumatic head. Ears, Nose, and Throat: Essentially benign. Neck: Supple. JVP is not elevated. No carotid bruits. No masses in the neck are appreciated. Chest: Clear to auscultation. No rales , no wheeze. No added sounds appreciated. Heart: Normal S1, S2. No added sounds. No gallops, no rubs, no significant murmurs. Abdomen: Benign, soft. Positive bowel sounds. Extremities: No edema, no cyanosis, no clubbing. Skin exam is normal. Psych: Normal affect and mood. 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 DIAGNOSTIC STUDIES/LAB DATA: Labs showed white blood cell 6.3, hemoglobin 12.9 , hematocrit 38, platelets 231. Sodium 137, potassium 3.8, chloride 106, BUN 19 , creatinine 1.01, magnesium 2.1. LFTs normal. TSH 5.17. Protein is normal. Her 12-lead EKG was normal with a normal sinus rhythm, heart rate 69 beats per minute, her MD segment and QTc are normal. In comparison to a previous EKG done in 2011 in the system, it is essentially unchanged because there is an isolated Q wave in leads 3 and aVF and borderline ST elevation inferiorly but those changes were in the EKG that was done in 2011, unchanged actually. The rhythm strip showed her to be in normal sinus rhythm, then she goes into asystole about 30 seconds and then she regains her rhythm with a sinus rhythm and bigeminy appreciated. Currently, she is hemodynamically stable without symptoms. Her chest x-ray was reported no acute cardiopulmonary disease. IMPRESSION: 1. Syncopal episode with documented asystole up to 30-second in the emergency room today. 2. History of dizziness and multiple syncopal episodes for about a year but multiple of them today. 3. Normal TSH level. 4. There is no suggestion for Lyme disease, although a Lyme titer was ordered. PLAN: The patient will be admitted to the intensive care unit. She has already applied external pacemaker pads, epinephrine at bedside. Very important to keep potassium more than 4, magnesium more than 2 as we are already doing. Aggressive hydration if needed. Keep a close eye on her vitals , and she would be scheduled for a permanent pacemaker tomorrow with her multiple syncopal episodes, long asystole pauses, and of course Lyme titer was ordered but there is no suggestion whatsoever to suggest Lyme disease in her. I discussed this with Dr. Mckeon. I discussed this with the family as well as the patient. She is amenable and willing to proceed and further recommendations will be pending her clinical outcome. We will obtain a transthoracic echo to evaluate her left ventricular systolic function, any organic or structural heart disease. TIME SPENT: More than half of at least 60 to 65 plus minutes was [id number] in the education and counseling mode explaining the above and answering their concerns and questions. [id number]/[id number] #: [id number] STEVE
[2018-06-01] MEDS: Acetaminophen TAB* 325 MG PO PRN ×3 (03:46→18:30)
[2018-06-01] MEDS: Heparin VIAL(*) 5000 UNITS/ML VIAL (FIVE THOUSAND) SUBCUT SCH ×3 (07:12→21:17)
[2018-06-01 08:49] LABS: Troponin I 0.01 ng/mL (<0.04)
[2018-06-01] MEDS ORDERED: Diazepam TAB(*) 5 MG PO ONE (08:52)
[2018-06-01] MEDS: Pantoprazole TAB * 40 MG TAB PO SCH (09:51)
--- NOTE | 2018-06-01 10:11 | ECHO ---
Patient: MALCOLM CALHOUN [facility] Rec#: [id number] : 1955 Date: 06/01/2018 Age: 63y Height: 155 cm / 61.0 in Weight: 57.6 kg / 127.0 lbs Sex: F BSA: 1.6 Room#: ED 11 Admit Date#: 05/31/2018 Type: Inpatient Referring: Presley Mckeon MD Reading: Curly Posey MD Glass Scullion: Jessica Diaz RN RDCS CC: Jolly Patterson MD Transthoracic Echocardiogram Indication: Abnormal EKG, Asystole BP: 119/89 HR: 61 Rhythm: NSR Findings History: GERD, migraines, syncopal episodes Technical Comments: The study quality is fair. Left Ventricle: The left ventricular chamber size, wall thickness and systolic function are within normal limits. There are no wall motion abnormalities The estimated ejection fraction is 55-60%. Normal left ventricular diastolic filling is observed. Left Atrium: The left atrial chamber size is normal. Right Ventricle: The right ventricular chamber size and systolic function are within normal limits. Right Atrium: The right atrial cavity size is normal. Aortic Valve: The aortic valve is trileaflet. The aortic valve leaflets are mildly thickened. There is no evidence of aortic regurgitation. There is no evidence of aortic stenosis. Mitral Valve: The mitral valve leaflets are mildly thickened. There is mild mitral regurgitation. There is no evidence of mitral stenosis. Tricuspid Valve: The tricuspid valve leaflets are normal. There is trace to mild tricuspid regurgitation. No pulmonary hypertension is noted. There is no tricuspid stenosis. Pulmonic Valve: The pulmonic valve structure is not well visualized. There is no evidence of pulmonic regurgitation. There is no pulmonic stenosis. Pericardium: There is no significant pericardial effusion. Aorta: There is mild dilatation of the ascending aorta. There is no dilatation of the aortic arch. There is no dilation of the aortic root. Pulmonary Artery: The main pulmonary artery is not well visualized. Venous: The inferior vena cava appears normal in size. There is a greater than 50% respiratory change in the inferior vena cava dimension. Summary: There was not any prior study for comparison. Conclusions The left ventricular chamber size, wall thickness and systolic function are within normal limits. There are no wall motion abnormalities The estimated ejection fraction is 55-60%. The right ventricular chamber size and systolic function are within normal limits. There is no evidence of aortic stenosis. There is mild mitral regurgitation. There is trace to mild tricuspid regurgitation. No pulmonary hypertension is noted. There is no significant pericardial effusion. Measurements Name Value Normal Range RVIDd (AP) 2D 3 cm (0.9 - 2.6) RVDdMajor (2D) 2.4 cm (2.2 - 4.4) RAd ISD 4CH 4.7 cm (3.4 - 4.9) RA (A4C)W 3.8 cm (2.9 - 4.6) IVSd (2D) 1 cm (0.6 - 1) LVPWd (2D) 1 cm (0.6 - 1) LVIDd (2D) 4.2 cm (3.6 - 5.4) LVIDs (2D) 2.9 cm - LV FS (2D) 31 % (25 - 45) Aortic Annulus 1.8 cm (1.4 - 2.6) Ao root diameter (2D) 3 cm (2.1 - 3.5) Ascending Ao 3.5 cm (2.1 - 3.4) Aortic arch 2.4 cm (1.8 - 3.4) LA dimension (AP) 2D 3.8 cm (2.3 - 3.8) LAd ISD 4CH 5.2 cm (2.9 - 5.3) LA ISD 4CH W 3.9 cm (2.5 - 4.5) Name Value Normal Range LA ESV BP (A/L) index 32.1 ml/m2 - Name Value Normal Range MV E-wave Vmax 1 m/sec - MV deceleration time 211 msec - MV A-wave Vmax 0.9 m/sec - MV E:A ratio 1.2 ratio - LV septal e' Vmax 0.1 m/sec - LV lateral e' Vmax 0.14 m/sec - LV E:e' septal ratio 10 ratio - LV E:e' lateral ratio 7.1 ratio - Name Value Normal Range AV Vmax 1.4 m/sec - AV VTI 36.6 cm - AV peak gradient 8 mmHg - AV mean gradient 5 mmHg - LVOT Vmax 0.98 m/sec - LVOT VTI 21.5 cm - LVOT peak gradient 4 mmHg - LVOT mean gradient 2 mmHg - JAMES Vmax 0.73 m/sec - Name Value Normal Range TR Vmax 2.3 m/sec - TR peak gradient 21 mmHg - RAP 3 mmHg - RVSP 24 mmHg - IVC diameter 1.9 cm - Name Value Normal Range PV Vmax 0.77 m/sec -
[2018-06-01] MEDS ORDERED: Midazolam* 1 MG/ML 5 ML VIAL (5 MG) ONE (10:26)
[2018-06-01] MEDS ORDERED: fentaNYL* 50 MCG/ML 2 ML VIAL (100 MCG VIAL) ONE (10:26)
[2018-06-01] MEDS ORDERED: Lidocaine 1% INJ* 10 MG/ML 30 ML SDV ONE (10:26)
[2018-06-01] MEDS: ceFAZolin 2 GM PREMIX in ORs 2 GM/50 ML BAG IVPB ONE ×2 (10:50→15:40)
[2018-06-01] MEDS ORDERED: ceFAZolin 2 GM in NS 100 ml - ONCE (Pharmacy Admix) IVPB ONE (11:00)
[2018-06-01] MEDS ORDERED: Naloxone* 0.4 MG/ML 1 ML VIAL ONE (11:04)
[2018-06-01] MEDS: ceFAZolin 1 GM/10 ML flush(*) SYRINGE for pocket flush (cardiology) FLUSH ONE ×2 (11:25→15:40)
[2018-06-01] MEDS ORDERED: oxyCODONE/Acetamin 5/325 MG* TAB PO PRN (12:06)
[2018-06-01] MEDS ORDERED: Acetaminophen TAB* 325 MG ONE (14:04)
[2018-06-01] MEDS: NS 0.9% 1000 ML** 1,000 ML IV SCH (15:50)
[2018-06-01] MEDS: Cholecalciferol TAB* 1000 UNITS PO SCH (15:51)
[2018-06-01] MEDS: ceFAZolin 1 GM in Dextrose (*) 1 GM/50 ML BAG IVPB SCH (18:07)
[2018-06-02] MEDS: ceFAZolin 1 GM in Dextrose (*) 1 GM/50 ML BAG IVPB SCH ×2 (03:16→10:27)
[2018-06-02] MEDS: NS 0.9% 1000 ML** 1,000 ML IV SCH (03:16)
[2018-06-02 07:57] VITALS: BP 146/88
[2018-06-02] MEDS ORDERED: Ondansetron INJ* 2 MG/ML VIAL IV PRN (08:06)
[2018-06-02] MEDS: Cholecalciferol TAB* 1000 UNITS PO SCH (09:05)
[2018-06-02] MEDS: Pantoprazole TAB * 40 MG TAB PO SCH (09:06)
[2018-06-02] MEDS: Heparin VIAL(*) 5000 UNITS/ML VIAL (FIVE THOUSAND) SUBCUT SCH (09:06)
--- NOTE | 2018-06-02 09:21 | PN ---
Subjective Date of Service: 06/02/18 - s/p DC PPM due to syncope with 30 second asystole Interval History: no events last night, patient states she is doing well. She is c/o headache which she states she will develop if she does not get enough sleep. Denies vision changes. No c/o chest pain, dizziness, sob, verma or palpitations. Left shoulder is sore but she states pain responded well to pain medication last night. Medications Active Medications: Acetaminophen (Tylenol Tab*) 650 mg PO Q4H PRN PRN Reason: PAIN Last Admin: 06/01/18 18:30 Dose: 650 mg Hydrocodone Bitart/Acetaminophen ([place] 5-325 Tab*) 1 tab PO Q4H PRN PRN Reason: PAIN Cholecalciferol (Vitamin D Tab*) 1,000 units PO DAILY [facility] Last Admin: 06/02/18 09:05 Dose: 1,000 units Heparin Sodium (Porcine) (Heparin Vial(*)) 5,000 units SUBCUT Q12HR JUNIOR Last Admin: 06/02/18 09:06 Dose: 5,000 units Cefazolin Sodium/Dextrose (Kefzol 1 Gm In Dextrose Duplex (*)) 1 gm in 50 mls @ 200 mls/hr IVPB Q8H JUNIOR Stop: 06/02/18 10:44 Last Admin: 06/02/18 03:16 Dose: 200 mls/hr Nfm* (Estradiol [ Vivelle-Dot] 0.05 Mg ) 0.05 mg TRANSDERM Q72HR JUNIOR Ondansetron HCl (Zofran Inj*) 4 mg IV Q6H PRN PRN Reason: NAUSEA Last Admin: 06/02/18 09:07 Dose: 4 mg Oxycodone/Acetaminophen (Percocet 5/325 Tab*) 1 tab PO Q4H PRN PRN Reason: PAIN Last Admin: 06/02/18 03:28 Dose: 1 tab Pantoprazole Sodium (Protonix Tab*) 40 mg PO DAILY JUNIOR Last Admin: 06/02/18 09:06 Dose: 40 mg Objective Vital Signs: Temp Pulse Resp BP Pulse Ox 97.6 F 72 16 146/88 99 06/02/18 07:42 06/02/18 07:42 06/02/18 07:57 06/02/18 07:42 06/02/18 07:42 Oxygen Devices in Use Now: None Appearance: Lying in bed, nad, a+o X3 Ears/Nose/Mouth/Throat: NL Teeth, Lips, Gums, Mucous Membranes Moist Neck: NL Appearance and Movements; NL JVP Respiratory: Symmetrical Chest Expansion and Respiratory Effort, Clear to Auscultation Cardiovascular: NL Sounds; No Murmurs; No JVD, No Edema, - - left anterior chest site has 4x4 dr[address], no blood or discharge noted on dressing. no hematoma, erosion, thi insitu, non tender to palpation. Abdominal: NL Sounds; No Tenderness; No Distention Skin: No Rash or Ulcers Neurological: Alert and Oriented x 3 Lines/Tubes/Other Access: Clean, Dry and Intact Peripheral IV Laboratory Results: 05/31/18 16:25 05/31/18 16:25 INR (Anticoag Therapy) 0.89 (0.77-1.02) 05/31/18 16:25 Total Bilirubin 0.40 mg/dL (0.2-1.0) 05/31/18 16:25 AST 20 U/L (13-39) 05/31/18 16:25 ALT 17 U/L (7-52) 05/31/18 16:25 Alkaline Phosphatase 64 U/L (34-104) 05/31/18 16:25 Total Protein 6.8 g/dL (6.4-8.9) 05/31/18 16:25 Albumin 4.1 g/dL (3.2-5.2) 05/31/18 16:25 Globulin 2.7 g/dL (2-4) 05/31/18 16:25 Albumin/Globulin Ratio 1.5 (1-3) 05/31/18 16:25 TSH 5.17 mcIU/mL (0.34-5.60) 05/31/18 16:25 05/31/18 16:25 Troponin I 0.01 Laboratory Results - last 24 hr 05/31/18 16:25 Lyme Total Antibody Negative Diagnostic Imaging: Echo 05/31/[address] Posey report; The left ventricular chamber size, wall thickness and systolic function are within normal limits. There are no wall motion abnormalities The estimated ejection fraction is 55-60%. The right ventricular chamber size and systolic function are within normal limits. There is no evidence of aortic stenosis. There is mild mitral regurgitation. There is trace to mild tricuspid regurgitation. No pulmonary hypertension is noted. There is no significant pericardial effusion. CXR from 06/01/2018 after DC PPM implant. VIEWS: 1: frontal AP view of the chest at 1:10 PM FINDINGS: LINES AND TUBES: A left-sided pacemaker is noted. CARDIOMEDIASTINAL SILHOUETTE: The cardiomediastinal silhouette is normal for portable technique. PLEURA: The costophrenic angles are sharp. No pleural abnormalities are noted. There is no appreciable pneumothorax. LUNG PARENCHYMA: There is patchy alveolar opacification of the right lung base. ABDOMEN: The upper abdomen is clear. There is no subphrenic gas. BONES AND SOFT TISSUES: No bone or soft tissue abnormalities are noted. IMPRESSION: 1. NO APPRECIABLE PNEUMOTHORAX. 2. RIGHT BASILAR ATELECTASIS. <Electronically signed by Elliott Forbes MD in OV> 06/01/18 1457 Dictated By: Elliott Forbes MD EKG Data: 06/02/2018; atrial-ventricular dual paced rhythm rate 84 Assessment/Plan #1 Syncope with asystole; occurred in ER witnessed on telemetry ( 30 second episode of asystole). She is s/p DC PPM /[id number]. CXR 06/01/2018 was negative for pneumothorax per radiology report. left anterior incision site was inspected. no evidence of hematoma. thi in situ. Device check today revealed RV threshold .40ms, atrial threshold .40ms. Normal device check. Will sign off case. She is to follow up next week on 06/11/2018 at 1200 with myself ( Bridgett Grimm) at our [facility] location for staple removal and wound inspection. She will need to be discharged home with Keflex 250mg PO TID x3 days. She states she ofter requires Diflucan for yeast infections when ever she takes an antibiotic, I spoke with the hospitalist who is aware. She is to use arm sling as directed. She may shower in 48 hours. No driving until she sees us in the clinic next week. Please refer to Discharge activity instructions for full information in regards to activity restrictions. TSH level was normal. Lyme screen is pending. normal wall motion on echo #2 Mild MR; she is stable and asymptomatic will f/u in our office. #3 HTN; BP 142/88; this could be secondary to her headache, however, we will follow closely if she is consistently > 140/90 recommend HTN management. #4 c/o headache with prior h/o migraine. No focal neuro deficit. She states symptomatology is consistent with prior migraines. Differ to hospitalist #5 Disposition; pending course will sign off. Plan of care was discussed on the phone with the hospitalist. Please do not hesitate to contact our practice with any questions or concerns. Discussed with Dr. Posey who agrees with the above assessment and plan. Attending: Curly Posey
[2018-06-02] MEDS: Acetaminophen TAB* 325 MG PO PRN (09:35)
--- NOTE | 2018-06-02 11:33 | PN ---
Work Excuse - Work Note Work Note: The above employee has been evaluated on 06/02/18. The physician has instructed the employee concerning further work as described below. Work Status: [1. No driving for a week 2. Can not use left upper extremity to reach over head. Need to wear her left arm sling until seen by her cuff stitcher] Jarrell Hills MD 132
--- NOTE | 2018-06-02 12:50 | DS ---
CC: Dr. Jolly Patterson; Dr. Rawls, Cardiology* DISCHARGE SUMMARY: DATE OF ADMISSION: 05/31/18 DATE OF DISCHARGE: 06/02/18 DISPOSITION: Discharged home. PRIMARY CARE PROVIDER: Dr. Jolly Patterson. FINAL DISCHARGE DIAGNOSES: 1. Syncope secondary to sinus pauses. 2. History of migraine. 3. Gastroesophageal reflux disease. 4. History of seizures. HOSPITAL COURSE: The patient presented to [facility] on 05/31/18 for recurrent seizure-like activity and syncopal episodes witnessed by the family and in the emergency room, she was witnessed to have sinus pause captured on the tele monitoring, greater than 6 seconds, associated with loss of consciousness. She was admitted to the Medical Service. She was observed in the ICU with transcutaneous pacing and on 06/01/18, she underwent permanent pacemaker by Cardiology. The patient is seen by me today for initial encounter. Case was discussed with cardiology team and she is deemed stable for discharge from cardiac point of view with outpatient followup on 06/11/18 with antibiotic prophylaxis with Keflex 250 t.i.d. and she was given Diflucan at the patient's request. She does develop yeast infection when she is on antibiotics. The patient was seen and evaluated by me. She is stable for discharge. PHYSICAL EXAM: Vital Signs: Today reveal pressure 146/88, temperature 97.6, pulse 72, respiratory rate 16, satting 99%. Head and Neck: Normocephalic, atraumatic. Lungs: Clear to auscultation. Cardiovascular: S1 and S2, paced, regular. Abdomen: Positive bowel sounds. Soft, nontender, nondistended. Extremities: No pedal edema. [employer]: No motor or focal sensory deficit. Skin: She does have left anterior chest wall dressing in place consistent with a recent pacemaker placement. INPATIENT DIAGNOSTIC STUDIES: Tele monitor, which revealed sinus pause greater than 6 seconds. Echocardiogram, 2D, revealed ejection fraction 55% to 60%, normal LV systolic and diastolic function. There is mild mitral regurg. No pulmonary hypertension. Chest x-ray, 06/01/18, reveals post pacer, no evidence of pneumothorax, right bibasilar atelectasis, otherwise unremarkable. DISCHARGE MEDICATIONS: She will be discharged on: 1. Keflex 250 mg p.o. t.i.d. 2. Fluconazole 150 p.r.n. for yeast infection. 3. Continue Protonix 40 daily. 4. Continue her estrogen. 5. Continue vitamin D. 6. Continue Tylenol. 7. Amlodipine 2.5 mg daily for hypertension and further titration according to Cardiology's followup. Her blood pressure in the hospital was running between 150/91 and 146/89. DISCHARGE RECOMMENDATIONS: The patient is to keep the arm sling. No driving for 1 week. Do not reach overhead. No shower for 2 days. Take all medications as prescribed. FOLLOWUP APPOINTMENTS: 1. The patient is to follow up with Cardiology with Bridgett Grimm NP, on 06/11, at noon. 2. Follow up with her PCP in 1 to 2 weeks. [id number]/[facility]PS #: [id number] STEVE
--- NOTE | 2018-06-03 00:53 | OP ---
CC: Dr. Watson * DATE OF OPERATION: 06/01/18 - ROOM #438 DATE OF : 59 SURGEON: Curly Posey MD. ANESTHESIA: Local anesthesia with conscious sedation. PRE-OP DIAGNOSES: Syncope, asystole. POST-OP DIAGNOSES: Syncope, asystole. OPERATIVE PROCEDURE: Dual-chamber pacemaker implantation. ESTIMATED BLOOD LOSS: Nil. COMPLICATIONS: None. INDICATION: The patient is a 63-year-old female who has been having episodes of lightheadedness for a couple of months. The patient had [place] the [place] She was transported to the emergency room. In the emergency room, she had another syncopal episode, which resulted in a 30-second run of asystole. The patient's laboratory studies were all normal. Echocardiogram was normal. Permanent pacemaker was recommended. DESCRIPTION OF PROCEDURE: The patient was brought to the procedure room in a fasting state. Informed consent had been obtained prior to the procedure. All labs were reviewed. The patient was placed supine on the procedure table. Her left deltopectoral area was cleaned and draped in the usual fashion. Lidocaine 1% was used for local anesthesia. Using ultrasound guidance, the axillary vein was entered by Seldinger technique and a guidewire was placed. A second guidewire was placed in the same technique. A 3.5 cm incision was made in the pectoral area and blunt dissection was carried down to the pectoral fascia. A pocket was fashioned for the pacemaker. Over the first guidewire, a 7-Indonesian sheath introducer was placed, through which a right ventricular lead was advanced to the RV apex. The right ventricular lead is a Medtronic model 5076, serial number [id number], and had an R-wave sensitivity of 6.2, impedance of 786 ohms, threshold of 1.1 V at 0.5 msec. The ventricular lead was sutured to the pectoral fascia. Over the second guidewire, a 7-Indonesian sheath introducer was placed, through which a right atrial lead was advanced to the high right atrium. The right atrial lead is a Medtronic model 5076, serial number [id number], that had P-wave sensitivity of 7.3, impedance of 517 ohms, threshold 1.2 volts at 0.5 msec. The atrial lead was sutured to the pectoral fascia. The pocket was flushed with normal saline. The generator was attached appropriately to the atrioventricular lead. The generator is a Kontera model W1DR01, serial number [id number]. The device was placed in the pocket. The surgical incision was closed in 3 layers. The patient tolerated the procedure well. There were no complications. [id number]/[facility] #: [id number] STEVE
[2018-06-03] MEDS ORDERED: ESTRADIOL 0.05 MG TRANSDERM SCH (09:00)
== END 2018-06-02 14:33 | disposition home or self-care (01) | DRG 171 ==
LOC: ED 16:02 → EDHOLD 18:31 → MEDTELE 06-01 15:19
PROVIDERS: ADMIT Internal Medicine; ATTEND Internal Medicine
PROC: 0JH606Z Insertion of Pacemaker, Dual Chamber into Chest Subcutaneous Tissue and Fascia, Open Approach (ICD-10-PCS; principal; 2018-05-31)
PROC: 02H63JZ Insertion of Pacemaker Lead into Right Atrium, Percutaneous Approach (ICD-10-PCS; 2018-05-31)
PROC: 02HK3JZ Insertion of Pacemaker Lead into Right Ventricle, Percutaneous Approach (ICD-10-PCS; 2018-05-31)
DX: R55 Syncope and collapse (principal); I46.9 Cardiac arrest, cause unspecified; F41.9 Anxiety disorder, unspecified; G43.909 Migraine, unspecified, not intractable, without status migrainosus; K21.9 Gastro-esophageal reflux disease without esophagitis; I34.0 Nonrheumatic mitral (valve) insufficiency; I10 Essential (primary) hypertension; Z88.2 Allergy status to sulfonamides; Z88.8 Allergy status to other drugs, medicaments and biological substances; Z90.710 Acquired absence of both cervix and uterus; Z82.49 Family history of ischemic heart disease and other diseases of the circulatory system; Z72.89 Other problems related to lifestyle; Z88.1 Allergy status to other antibiotic agents; Z90.49 Acquired absence of other specified parts of digestive tract
CPT/HCPCS: 33208; 36415; 71045; 71046; 80053; 80320; 81003; 82550; 83605; 83735; 84443; 84484; 85025; 85610; 86618; 93005; 93306; 99156; 99157; 99284; A9270-GY; C1785; C1892; C1898; G0480; J0690; J1644; J2250; J2310; J2405; J3010

== ENCOUNTER 2018-06-15 18:59 | Emergency (ER) | payer BC ==
--- OUTSIDE RECORDS SUMMARY | 2018-06-15 19:06 | XMS REPORT | Continuity of Care Document ---
:1955 External Reference #:[id number] Author Name Lynette Saldana Care Team Providers Name Role Phone Jolly Patterson MD Primary Care Physician Unavailable Payers Date Identification Numbers Payment Provider Subscriber Effective: 2013 Policy Number: [id number] [employer] Cony Mack PayID: [id number] [address] [address] LOIS Lindsey [address] Effective: 2011 Policy Number: [id number] [employer] Cony Mack Expires: 2013 PayID: [id number] [address] [address] [place] [address] Advance Directives Type Date Description Status Comment Other Directive 11/13/2015 [facility] Care Proxy Current and Verified Problems Active Problems Provider Date Migraine Jennifer Barlow, N.P. Onset: 03/19/2011 Gastroesophageal reflux disease Jennifer Barlow, N.P. Onset: 03/19/2011 Hiatal hernia Onset: Obstructive sleep apnea syndrome Cammy Golden DNP, RN, LAB DIRECTOR- Onset: 06/2017 Family History Date Family Member(s) Observation Comments Father Coronary Artery Disease (CAD) Age 83 Mother Cancer, Breast (diagnosed at age 73, ER and MA Positive), Cardiac issues related to radiation, OA age 81 Children 1 Son - Healthy age 42 Siblings 6 2 Brothers - Healthy 1 Brother - Kidney Cancer - Doing well 3 Sisters - 1 Sister with lung cancer (diagnosed age 49, smoker. 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 Tobacco Use Start: Unknown Former Cigarette End: Unknown Smoker Smoking Status Reviewed: 06/11/18 Former Cigarette Smoker ETOH Use Currently consumes 1 glass of wine 1-2x alcohol per week Tobacco Use Start: Unknown Patient is a former Experimented as a End: Unknown smoker teenager Recreational Drug Use Denies Drug Use Exercise Type/Frequency Exercises regularly 3 - 5 days per week Allergies, Adverse Reactions, Alerts Active Allergies Reaction Severity Comments Date Bactrim 04/24/2010 Omeprazole Throat swelled 03/20/2011 Medications Active Medications SIG Qnty Indications Ordering Provider Date Pantoprazole Sodium take 1 tablet by 90tabs K21.9 Barney Overton NP 2016 mouth once daily 40mg Tablets DR Estradiol apply one patch 8units Jennifer Barlow, 09/14/2014 0.025mg/24HR twice weekly N.P. Patches Biweek Imitrex one tablet po, 20tabs G43.909 Sherry Mcgee, 05/18/2014 50mg Tablets may repeat in 2 M.D., FACP hours prn as needed for headache Vitamin D3 1 by mouth every Unknown 1000Unit day Capsules Amlodipine Besylate one pill daily Unknown 2.5mg Tablets History Medications Benzonatate one by mouth 30caps J20.9 Jennifer Barlow, 04/06/2018 - 200mg three times daily N.P. 04/20/2018 Capsules as needed for cough Fluticasone Propionate 2 sprays each 16units J20.9 Jennifer Cain, 2018 - nostril daily as N.P. 04/20/2018 50mcg/Act Suspension needed Ventolin HFA 1 to 2 18units J20.9 Jennifer Barlow, 04/06/2018 - 108(90Base) inhalations every N.P. 06/10/2018 mcg/Act Aerosol 4 hours as needed Azithromycin two tabs day one, 6tabs J20.9 Jennifer Cain, 04/06/2018 - 250mg one daily till N.P. 04/16/2018 Tablets gone Fluconazole one by mouth 3tabs J20.9 Jennifer Varn, 04/06/2018 - 150mg Tablets every 3 days for N.P. 06/10/2018 3 doses Fluconazole 1 tablet one time 3tabs Barney Overton NP 12/27/2017 - 150mg Tablets for yeast 01/03/2018 infection. may repeat 3 days later if needed Amoxicillin/Clavulanat take one tablet 20tabs J01.90 Barney Overton, [place] 2017 - e Potassium q12 hours for 10 01/05/2018 875-125mg days Tablets Levofloxacin one by mouth 10tabs J01.90 Barney Overton, [employer] 05/14/2017 - 500mg daily for 10 days 05/24/2017 Tablets Fluconazole 1 tablet one time 3tabs Ghanshyam01.90 Barney Overton NP 05/14/2017 - 150mg Tablets for yeast 05/24/2017 infection. may repeat 3 days later if needed Doxycycline Hyclate one tablet twice 20caps J01.90 Barney Overton NP 2017 - 100mg daily for 10 04/23/2017 Capsules days. Fluconazole one by mouth june 3tabs J01.90 Barney Overton NP 04/16/2017 - 150mg Tablets repeat in 3 days 04/23/2017 as needed Amoxicillin/Clavulanat 1 by mouth twice 20tabs J01.90 [place] 02/26/2017 - e Potassium a day [facility], 04/07/2017 875-125mg M.D. Tablets Fluconazole once daily 3tabs J01.90 [place] 02/26/2017 - 150mg [facility]ts [facility] M.[facility] Amoxicillin 1 by mouth three 30tabs J01.90 Jolly 11/26/2016 - 500mg Tablets times a day x 10 Leonardo M.D. 02/26/2017 days Fluconazole 1 tablet one time 3tabs J01.90 Jolly 11/26/2016 - 150mg Tablets for yeast Janak Patterson 03/02/2017 infection. may repeat 3 days later if needed Azelastine HCL instill 1 drop 6ml H01.009 Jolly 11/26/2016 - (Ophthalmic) into both eyes 2 Leonardo M.D. 03/02/2017 0.05% times per day for Solution allergies Erythromycin apply to right 3.500gm H10.89 Jennifer Barlow, 11/20/2016 - 5mg/GM eyelids twice a N.P. 12/04/2016 Ointment day until clear Tobramycin 1 drop in each 5ml H10.89 Jennifer Barlow, 11/20/2016 - 0.3% Solution eye every 4hours N.P. 11/27/2016 x 7 days Amoxicillin/Clavulanat take one tablet 20tabs J01.90 Barney Overton NP 2016 - e Potassium q12 hours for 10 10/20/2016 875-125mg days Tablets Fluconazole one by mouth 3tabs J01.90 Barney Overton NP 10/14/2016 - 150mg Tablets every 3 days 10/22/2016 Azithromycin two tabs day one, 6tabs H66.92 Jennifer Cain, 07/19/2016 - 250mg one daily till N.P. 08/02/2016 Tablets gone Fluconazole one by mouth 3tabs H66.92 Jennifer Cain, 07/19/2016 - 150mg Tablets every 3 days N.P. 10/07/2016 Ondansetron dissolve one 30tabs R11.2 Barney Overton NP 06/17/2016 - 4mg Tablets tablet orally 07/19/2016 Dispers every 8 hours as needed for nausea. Fluconazole one by mouth june 2tabs Jennifer Barlow, 04/12/2016 - 150mg Tablets repeat in 3 days N.P. 04/18/2016 as needed Cheratussin ac 1 - 2 teaspoons 120ml J20.9 Jennifer Cain, 04/02/2016 - by mouth every 4 N.P. 04/16/2016 100-10mg/5ML Syrup hours as needed Ventolin HFA 1 to 2 1inhaler J20.9 Jennifer Cain, 04/02/2016 - 108(90Base) inhalations every N.P. 04/16/2016 mcg/Act Aerosol 4 hours as needed Valtrex one po tid x 7 21tabs B02.9 Jennifer Cain, 03/05/2016 - 1gm Tablets N.P. 03/12/2016 Levofloxacin one by mouth 10tabs J01.00 Barney Overton NP 02/22/2016 - 500mg daily for 10 days 03/04/2016 Tablets Fluconazole one by mouth 3tabs J01.00 Barney Overton NP 02/22/2016 - 150mg Tablets every 3 days 03/04/2016 starting day 3 of antibiotic. Benzonatate take one or two 30caps J01.00 Barney Overton NP 02/22/2016 - 100mg capsules every 8 03/04/2016 Capsules hours as needed for cough. Amoxicillin/Clavulanat one tablet by 20tabs J01.00 Jennifer Cain, 2015 - e Potassium mouth twice daily N.P. 02/04/2016 875-125mg for 10 days Tablets Fluconazole one by mouth 3tabs J01.00 Jennifer Cain, 01/25/2016 - 150mg Tablets every 3 ays for 3 N.P. 04/02/2016 doses Amoxicillin/Clavulanat one tablet by 28tabs J01.00 Jennifer Cain, 2015 - e Potassium mouth twice daily N.P. 11/03/2015 875-125mg for 14 days Tablets Fluconazole one by mouth 4tabs J01.00 Jennifer Varn, 10/20/2015 - 150mg Tablets every 3 days for4 N.P. 01/25/2016 doses Transderm-Scop (1.5 apply one patch 3units J01. Jennifer Varn, 2015 - MG) behind ear every N.P. 02/22/2016 1mg/3Days Patches 72 hours 72HR Cipro 1 by mouth twice 20tabs J01. Jennifer Cain, 10/20/2015 - 500mg Tablets a day for 10 days N.P. 10/30/2015 Amoxicillin/Clavulanat one tablet by 28tabs J01. Jennifer Cain, 2015 - e Potassium mouth twice daily N.P. 06/05/2015 875-125mg for 1 days Tablets Fluconazole one by mouth 3tabs Jennifer Barlow, 04/11/2015 - 150mg Tablets every 3 days N.P. 10/20/2015 starting day 3 of antibiotic. Augmentin one by mouth 20tabs J01.00 Jennifer Varn, 04/11/2015 - 875-125mg every 12 hours N.P. 04/21/2015 Tablets for ten days Nasonex instill 1 spray 17units J01.00 Jennifer Barlow, 01/25/2015 - 50mcg/Act into each nostril N.P. 05/22/2015 Suspension once daily Augmentin one by mouth 20tabs J01.00 Jennifer Barlow, 01/25/2015 - 875-125mg every 12 hours N.P. 02/04/2015 Tablets for ten days Fluticasone Propionate 2 sprays each 16gm 461.9 Dedrick Rubi NP 12/08/2014 - nostril daily as 01/25/2015 50mcg/Act Suspension needed Fluconazole one by mouth 3tabs 461.9 Jennifer Barlow, 12/08/2014 - 150mg Tablets every 3 days N.P. 02/03/2015 Amoxicillin 1 tab by mouth 14tabs J01.00 Dedrick Rubi NP 12/08/2014 - 500mg Tablets twice a day times 12/16/2014 7 days Fexofenadine HCL 1 by mouth every 90tabs Alethea 09/14/2014 - 180mg day Janak Morgan 07/19/2016 Tablets Pantoprazole Sodium 1 by mouth every 90tabs K21.9 Jennifer Barlow, 2014 - 20mg day N.P. 06/17/[address] Man one by mouth up 20tabs F41.9 Jennifer Barlow, 03/02/2014 - 0.25mg Tablets to three times N.P. 04/07/2017 daily as needed for anxiety MDD 3 Azithromycin 2 tabs by mouth 6tabs 461.8 Barney Overton NP 01/27/2014 - 250mg every day x1 day, 02/22/2014 Tablets 1 tab by mouth every day x 4 days Augmentin 1 tablet by mouth 20tabs 461.9 Barney Overton NP 12/10/2013 - 875-125mg q12 hours for 10 12/28/2013 Tablets days Azithromycin two tabs day one, 6tabs 461.9 Jennifer Barlow, 10/14/2013 - 250mg one daily till N.P. 10/24/2013 Tablets gone Fluticasone Propionate 2 sprays each 16units Jennifer Barlow, 08/13/2013 - nostril daily as N.P. 09/14/2014 50mcg/Act Suspension needed Azithromycin two tabs day one, 6tabs 461.9 Jennifer Barlow, 06/11/2013 - 250mg one daily till N.P. 06/21/2013 Tablets gone Fluticasone Propionate 2 sprays each 16gm 461.9 Jennifer Barlow 06/11/2013 - nostril daily as N.P. 06/16/2013 50mcg/Act Suspension needed Augmentin one by mouth 20tabs 461.9 Jennifer Queenlacey, 04/01/2013 - 875-125mg every 12 hours N.P. 04/11/2013 Tablets for ten days Fluconazole one by mouth 3tabs 461.9 Barney Brooklynn, [employer] 04/01/2013 - 150mg Tablets every 3 days 02/22/2014 Alprazolam one by mouth up 20tabs 300.00 Jennifer Cain, 09/11/2012 - 0.25mg Tablets to three times N.P. 02/22/2014 daily as needed for anxiety Pantoprazole Sodium take 1 tablet by 30tabs Jennifer Barlow, 09/11/2012 - 40mg mouth once daily N.P. 09/14/[address] if needed Laura-Kassie apply one patch 8units Jennifer Cain, 06/12/2012 - 0.05mg/24HR twice weekly N.P. 09/14/2014 Patches Biweek Prochlorperazine 1 tab po tid prn 30tabs 787.02 Monserrat 12/12/2011 - Maleate Phillip, N.P. 06/05/2012 5mg Tablets Ibuprofen 400 mg po q4-6h; 100tabs 462 Monserrat 12/12/2011 - 400mg Tablets max 2400 mg/day Phillip, N.P. 12/12/2011 Amoxicillin/Potassium 1 po bid for 10 20tabs 461.9 Jennifer Cain, 2011 - Clavulanate days N.P. 12/05/2011 875-125mg Tablets Fluticasone Propionate 1 spray each 16gm 461.9 Jennifer Cain, 11/25/2011 - nostril daily as N.P. 04/01/2013 50mcg/Act Suspension needed Fluconazole one by mouth june 2tabs 461.9 Jennifer Cain, 11/25/2011 - 150mg Tablets repeat in 3 days N.P. 12/01/2011 as needed Meclizine HCL 1/2 - 1 tablet hs 30tabs 386.11 Jennifer Barlow, 11/25/2011 - 25mg prn vertigo N.P. 12/12/2011 Tablets Vivelle-Dot apply one patch 8units Sherry Mcgee, 06/07/2011 - 0.025mg/24HR twice weekly M.D., [facility] 06/12/2012 Patches Biweek Vyksywr-T-Wgft 5 gtts bid for 7 5ml 380.9 Jolly 04/05/2011 - days Janak Patterson 11/25/2011 10-10-1mg/ml Solution Ranitidine HCL take one tablet 60tabs Sherry Mcgee, 03/20/2011 - 150mg by mouth twice a M.D., [facility] 06/05/2012 Tablets day Omeprazole 1 po qd 90caps 530.81 Sherry Mcgee, 03/19/2011 - 40mg Capsules M.D., [facility] 03/20/2011 Imitrecharlotte one tablet as 9tabs 346.90 Sherry Abbasion, 03/19/2011 - 50mg Tablets needed for M.D., [facility] 06/05/2012 headache Cephalexin take 1 four times 20caps Sherry Mcgee, 04/24/2010 - 250mg Capsules a day M.D., [facility] 03/19/2011 Pantoprazole Sodium take 1 tablet by 30tabs Sherry Mcgee, 04/17/2010 - 40mg mouth once daily M.D., [facility] 03/20/[address] if needed Fluticasone Propionate 2 inhalations 1bottle Sherry Mcgee, 02/26/2010 - each nostril once M.D., [facility] 03/08/2010 50mcg/Act Suspension daily Diflucan sig 1 po repeat 2tabs Sherry Abbasion, 02/22/2010 - 150mg Tablets in 3 days if M.D., [facility] 11/25/2011 needed Meclizine 1 tablet four 60tabs Unknown 02/19/2010 - 12.5mg Tablets times daily as 03/19/2011 needed for motion sickness Sumatriptan Succinate take 1 tablet by 9tabs Jolly 01/15/2010 - mouth if needed Janak Patterson 12/10/2013 50mg Tablets for headache Vivelle-Dot apply 1 patch two 8units Sherry Mcgee, 11/29/2009 - 0.05mg/24HR times a week as M.D., FACP 11/29/2009 PTTW directed Vivelle-Dot Apply 1 Patch Two 8units Sherry Mcgee, 11/29/2009 - 0.0375mg/24HR Times A Week Janak, FACP 06/07/2011 Patches Biweek Ceftin take one tablet 10tabs Unknown - 250mg Tablets twice daily for 04/24/2010 10 days Eric-Carb Forte daily Unknown - 1250mg 04/07/2017 Tablets Rhinocort Allergy Unknown - 04/07/2017 32mcg/Act Suspension Immunizations CPT Code Status Date Vaccine Lot # [id number] Given 12/09/2017 Influenza Virus Vaccine, Quadrivalent, Split, Preservative Free [id number] Given 12/28/2016 Influenza Virus Vaccine, Quadrivalent, Split, Preservative Free Q2039 Given 12/11/2015 Flu Vaccine NOS Q2035 Given 12/02/2014 Afluria Vaccine Q2037 Given 11/22/2013 Fluvirin Im 3Yrs And Older Q2035 Given 12/16/2012 Afluria Vaccine Q2037 Given 01/23/2012 Fluvirin Im 3Yrs And Older [id number] Given 04/05/2011 Tdap - Tetanus/Diptheria/Acellular Pertussis [id number] Given 03/19/2011 Influenza Virus 3Yrs & Over [id number] Vital Signs Date Vital Result Comment 06/11/2018 11:48am Height 61 inches 5'1" Weight 142.00 lb w/o shoes Heart Rate 80 /min reg BP Systolic Sitting 100 mmHg Lue reg cuff BP Diastolic Sitting 80 mmHg Lue reg cuff Respiratory Rate 16 /min BMI (Body Mass Index) 26.8 kg/m2 04/06/2018 11:21am Height 61 inches 5'1" Weight 143.25 lb Heart Rate 88 /min BP Systolic 137 mmHg BP Diastolic 77 mmHg Body Temperature 98.0 F O2 % BldC Oximetry 96 % BMI (Body Mass Index) 27.1 kg/m2 02/16/2018 8:58am Height 61 inches 5'1" Weight 147.00 lb Heart Rate 69 /min BP Systolic 121 mmHg BP Diastolic 65 mmHg Body Temperature 97.7 F O2 % BldC Oximetry 96 % BMI (Body Mass Index) 27.8 kg/m2 12/26/2017 4:23pm Height 61 inches 5'1" Weight 132.00 lb Heart Rate 70 /min BP Systolic 119 mmHg BP Diastolic 76 mmHg Body Temperature 97.2 F O2 % BldC Oximetry 99 % BMI (Body Mass Index) 24.9 kg/m2 06/26/2017 8:07am Height 61 inches 5'1" Weight 141.00 lb Heart Rate 72 /min BP Systolic Sitting 100 mmHg BP Diastolic Sitting 62 mmHg Respiratory Rate 14 /min O2 % BldC Oximetry 96 % BMI (Body Mass Index) 26.6 kg/m2 05/14/2017 11:49am Weight 143.50 lb Heart Rate 75 /min BP Systolic 118 mmHg BP Diastolic 68 mmHg Body Temperature 96.9 F O2 % BldC Oximetry 98 % 04/28/2017 10:54am Height 61 inches 5'1" Weight 139.00 lb Heart Rate 60 /min BP Systolic Sitting 124 mmHg Rue reg cuff BP Diastolic Sitting 86 mmHg Rue reg cuff Respiratory Rate 16 /min O2 % BldC Oximetry 95 % On Ra BMI (Body Mass Index) 26.3 kg/m2 04/16/2017 4:19pm Weight 140.25 lb Heart Rate 58 /min BP Systolic 114 mmHg BP Diastolic 66 mmHg Body Temperature 97.4 F O2 % BldC Oximetry 99 % 04/08/2017 8:52am Height 51 inches 4'3" Weight 141.00 lb Heart Rate 72 /min BP Systolic Sitting 102 mmHg BP Diastolic Sitting 68 mmHg Respiratory Rate 14 /min O2 % BldC Oximetry 98 % BMI (Body Mass Index) 38.1 kg/m2 Neck Circumference in inches 14 03/03/2017 9:25am Weight 141.00 lb Heart Rate 78 /min BP Systolic Sitting 120 mmHg BP Diastolic Sitting 82 mmHg Body Temperature 97.6 F O2 % BldC Oximetry 98 % 02/26/2017 1:39pm Height 60.5 inches 5'0.50" Weight 143.25 lb Heart Rate 66 /min BP Systolic Sitting 120 mmHg BP Diastolic Sitting 78 mmHg Body Temperature 97.7 F O2 % BldC Oximetry 98 % BMI (Body Mass Index) 27.5 kg/m2 11/26/2016 4:52pm Height 60.5 inches 5'0.50" Weight 139.00 lb Heart Rate 63 /min BP Systolic 118 mmHg BP Diastolic 64 mmHg O2 % BldC Oximetry 98 % BMI (Body Mass Index) 26.7 kg/m2 11/20/2016 3:15pm Height 60.5 inches 5'0.50" Weight 138.75 lb Heart Rate 65 /min BP Systolic 124 mmHg BP Diastolic 78 mmHg Body Temperature 97.8 F O2 % BldC Oximetry 98 % BMI (Body Mass Index) 26.6 kg/m2 10/14/2016 1:08pm Height 60.5 inches 5'0.50" Weight 141.00 lb Heart Rate 60 /min BP Systolic Sitting 128 mmHg BP Diastolic Sitting 80 mmHg Respiratory Rate 16 /min Pain Level 4 BMI (Body Mass Index) 27.1 kg/m2 07/19/2016 1:13pm Weight 136.50 lb Heart Rate 65 /min BP Systolic 110 mmHg BP Diastolic 68 mmHg Body Temperature 97.6 F O2 % BldC Oximetry 99 % 06/17/2016 10:10am Weight 135.75 lb Heart Rate 71 /min BP Systolic 130 mmHg BP Diastolic 68 mmHg Body Temperature 96.7 F O2 % BldC Oximetry 92 % 04/02/2016 2:00pm Weight 137.00 lb Heart Rate 73 /min BP Systolic Sitting 148 mmHg BP Diastolic Sitting 92 mmHg Respiratory Rate 16 /min Body Temperature 98.8 F O2 % BldC Oximetry 97 % 03/05/2016 10:12am Weight 136.00 lb Heart Rate 74 /min BP Systolic Sitting 118 mmHg BP Diastolic Sitting 66 mmHg Respiratory Rate 15 /min Body Temperature 98.0 F O2 % BldC Oximetry 98 % 02/22/2016 11:32am Height 60.25 inches 5'0.25" Weight 136.00 lb Heart Rate 75 /min BP Systolic 112 mmHg BP Diastolic 70 mmHg Body Temperature 97.9 F O2 % BldC Oximetry 98 % BMI (Body Mass Index) 26.3 kg/m2 01/25/2016 11:35am Height 60.25 inches 5'0.25" Weight 133.00 lb Heart Rate 63 /min BP Systolic 108 mmHg BP Diastolic 70 mmHg Body Temperature 97.1 F O2 % BldC Oximetry 98 % BMI (Body Mass Index) 25.8 kg/m2 10/20/2015 9:35am Weight 129.00 lb Heart Rate 78 /min BP Systolic Sitting 128 mmHg BP Diastolic Sitting 82 mmHg Respiratory Rate 15 /min Body Temperature 98.5 F O2 % BldC Oximetry 98 % 09/18/2015 9:22am Height 60.25 inches 5'0.25" Weight 129.00 lb Heart Rate 76 /min BP Systolic Sitting 124 mmHg BP Diastolic Sitting 80 mmHg Respiratory Rate 15 /min Body Temperature 98.0 F O2 % BldC Oximetry 98.5 % BMI (Body Mass Index) 25.0 kg/m2 05/22/2015 11:50am Weight 132.00 lb Heart Rate 65 /min BP Systolic Sitting 125 mmHg BP Diastolic Sitting 81 mmHg Body Temperature 96.9 F O2 % BldC Oximetry 99 % 04/11/2015 10:33am Heart Rate 81 /min BP Systolic Sitting 109 mmHg BP Diastolic Sitting 77 mmHg Body Temperature 98.2 F O2 % BldC Oximetry 99 % 01/25/2015 1:30pm Heart Rate 62 /min BP Systolic Sitting 137 mmHg BP Diastolic Sitting 91 mmHg Body Temperature 97.3 F O2 % BldC Oximetry 98 % 12/08/2014 9:49am Height 61.5 inches 5'1.50" Weight 134.00 lb Heart Rate 77 /min BP Systolic Sitting 134 mmHg BP Diastolic Sitting 86 mmHg Body Temperature 97.8 F O2 % BldC Oximetry 96 % BMI (Body Mass Index) 24.9 kg/m2 09/14/2014 9:06am Height 61.5 inches 5'1.50" Weight 136.00 lb Heart Rate 74 /min BP Systolic 112 mmHg BP Diastolic 67 mmHg Body Temperature 98.1 F BMI (Body Mass Index) 25.3 kg/m2 08/23/2014 9:47am Weight 137.00 lb Heart Rate 80 /min BP Systolic Sitting 123 mmHg BP Diastolic Sitting 75 mmHg Body Temperature 96.9 F 02/22/2014 8:45am Height 61.50 inches 5'1.50" Weight 146.00 lb Heart Rate 74 /min BP Systolic Sitting 122 mmHg BP Diastolic Sitting 82 mmHg BMI (Body Mass Index) 27.1 kg/m2 01/27/2014 3:18pm Height 61.50 inches 5'1.50" Weight 146.25 lb Heart Rate 66 /min BP Systolic Sitting 130 mmHg BP Diastolic Sitting 80 mmHg Body Temperature 97.3 F BMI (Body Mass Index) 27.2 kg/m2 12/10/2013 3:31pm Weight 143.00 lb Heart Rate 72 /min BP Systolic Sitting 110 mmHg BP Diastolic Sitting 68 mmHg Body Temperature 98.6 F 10/14/2013 12:02pm Weight 142.00 lb Heart Rate 72 /min BP Systolic Sitting 148 mmHg BP Diastolic Sitting 72 mmHg Body Temperature 97.3 F 06/11/2013 3:22pm Weight 145.00 lb Heart Rate 70 /min BP Systolic Sitting 118 mmHg BP Diastolic Sitting 62 mmHg Body Temperature 98.2 F 04/01/2013 11:03am Weight 149.25 lb Heart Rate 60 /min BP Systolic 118 mmHg BP Diastolic 76 mmHg Body Temperature 97.3 F 10/20/2012 4:36pm Weight 140.75 lb Heart Rate 68 /min BP Systolic Sitting 118 mmHg BP Diastolic Sitting 70 mmHg Body Temperature 97.7 F 09/11/2012 3:25pm Height 60.5 inches 5'0.50" Weight 144.00 lb Heart Rate 70 /min BP Systolic Sitting 120 mmHg BP Diastolic Sitting 70 mmHg BMI (Body Mass Index) 27.7 kg/m2 06/12/2012 8:48am Weight 145.00 lb Heart Rate 66 /min BP Systolic Sitting 122 mmHg BP Diastolic Sitting 80 mmHg 06/05/2012 9:24am Weight 144.00 lb Heart Rate 68 /min BP Systolic Sitting 128 mmHg BP Diastolic Sitting 80 mmHg Body Temperature 97.3 F 12/12/2011 9:37am Height 61 inches 5'1" Weight 142.00 lb Heart Rate 66 /min BP Systolic Sitting 128 mmHg BP Diastolic Sitting 86 mmHg Body Temperature 97.7 F [facility] BMI (Body Mass Index) 26.8 kg/m2 11/25/2011 4:19pm Height 61 inches 5'1" Weight 149.00 lb Heart Rate 68 /min BP Systolic Sitting 126 mmHg BP Diastolic Sitting 72 mmHg Body Temperature 97.9 F BMI (Body Mass Index) 28.2 kg/m2 04/05/2011 8:36am Height 61 inches 5'1" Weight 140.00 lb Heart Rate 64 /min BP Systolic Sitting 122 mmHg BP Diastolic Sitting 72 mmHg BMI (Body Mass Index) 26.4 kg/m2 03/19/2011 3:40pm Height 61 inches 5'1" Weight 142.00 lb Heart Rate 68 /min BP Systolic Sitting 102 mmHg BP Diastolic Sitting 68 mmHg BMI (Body Mass Index) 26.8 kg/m2 04/24/2010 3:33pm Weight 146.50 lb Heart Rate 64 /min BP Systolic 102 mmHg BP Diastolic 70 mmHg Body Temperature 98.7 F 02/26/2010 2:50pm Weight 154.50 lb Heart Rate 76 /min BP Systolic 112 mmHg BP Diastolic 78 mmHg Body Temperature 98.7 F Results Test Date Facility Test Result H/L Range Note CBC Auto Diff 05/31/2018 [facility] White Blood 6.3 10^3/uL N 3.5-10.[address] [place] [address] [phone] Red Blood Count 4.05 10^6/uL N 3.70-4.87 Hemoglobin 12.9 g/dL N 12.0-16.0 Hematocrit 38 % N 33-41 Mean Corpuscular Volume 94 fL N 80-97 Mean Corpuscular Hemoglobin 32 pg High 27-31 Mean Corpuscular HGB Conc 34 g/dL N 31-36 Red Cell Distribution Width 13 % N 10.5-15 Platelet Count 231 10^3/uL N 150-450 Mean Platelet Volume 7.7 fL N 7.4-10.4 Abs Neutrophils 4.6 10^3/uL N 1.5-7.7 Abs Lymphocytes 1.2 10^3/uL N 1.0-4.8 Abs Monocytes 0.4 10^3/uL N 0-0.8 Abs Eosinophils 0.1 10^3/uL N 0-0.6 Abs Basophils 0 10^3/uL N 0-0.2 Abs Nucleated RBC 0 10^3/uL Granulocyte % 72.6 % Lymphocyte % 19.7 % Monocyte % 6.5 % Eosinophil % 0.9 % Basophil % 0.3 % Nucleated Red Blood Cells % 0 Inr/Protime 05/31/2018 [facility] Inr 0.89 N 0.77-1.[address] [place] [address] [phone] Laboratory test 05/31/2018 [facility] Lactic Acid 2.2 High 0.5 -2.[address] mmol/[place] [address] [phone] Comp Metabolic 05/31/2018 [facility] Sodium 137 N 135-[address] mmol/[place] [address] [phone] Potassium 3.8 mmol/L N 3.5-5.0 Chloride 106 mmol/L N 101-111 Co2 Carbon Dioxide 24 mmol/L N 22-32 Anion Gap 7 mmol/L N 2-11 Glucose 175 mg/dL High 70-100 Blood Urea Nitrogen 19 mg/dL N 6-24 Creatinine 1.01 mg/dL High 0.51-0.95 BUN/Creatinine Ratio 18.8 N 8-20 Calcium 9.1 mg/dL N 8.6-10.3 Total Protein 6.8 g/dL N 6.4-8.9 Albumin 4.1 g/dL N 3.2-5.2 Globulin 2.7 g/dL N 2-4 Albumin/Globulin Ratio 1.5 N 1-3 Total Bilirubin 0.40 mg/dL N 0.2-1.0 Alkaline Phosphatase 64 U/L N 34-104 Alt 17 U/L N 7-52 Ast 20 U/L N 13-39 Egfr Non- 55.7 >60 Egfr 67.4 >60 2 Laboratory test 05/31/2018 [facility] Magnesium 2.1 mg/dL N 1.9-2.7 finding [address] [place] [address] [phone] Creatine Kinase(CK) 120 U/L N 10-223 Alcohol < 10 mg/dL N <10 TSH (Thyroid Stim Horm) 5.17 mcIU/mL N 0.34-5.60 Urinalysis Profile 05/31/2018 [facility] Urine Color Straw [address] [place] [address] [phone] Urine Appearance Clear Urine Specific Ke[place] 1.006 Low 1.010-1.030 Urine pH 7.0 N 5-9 Urine Urobilinogen Negative Negative Urine Ketones Negative Negative Urine Protein Negative Negative Urine Leukocytes Negative Negative Urine Blood Negative Negative Urine Nitrite Negative Negative Urine Bilirubin Negative Negative Urine Glucose 1+(50 mg/dL) Abnormal Negative Laboratory test 05/31/2018 [facility] Troponin-I (TnI) 0.01 ng/ mL <0.04 3 finding [address] [place] [address] [phone] Lyme Screen W/ Reflex To WB Negative Negative Laboratory test 04/06/2018 [facility] Influenza A/B Rapid negative 4 finding Lipid Profile 02/06/2018 [facility] Triglycerides 114 mg/dL 5 (Trig/Chol/HDL) [address] [place] [address] [phone] Cholesterol 194 mg/dL 6 HDL Cholesterol 53.8 mg/dL 7 LDL Cholesterol 117 mg/dL 8 Laboratory test 02/06/2018 [facility] Glucose 101 mg/dL High 70-[address] [place] [address] [phone] Laboratory test 01/12/2018 [facility] Surgical SEE 9, finding [address] DR[address] Interface Order RESULT 10 [place] [address] BELOW [phone] Urine Culture 01/23/2017 [facility] Urine Culture SEE 11, And [address] RESULT 12 [place] [address] BELOW [phone] Laboratory test 11/08/2016 [facility] Glucose 97 mg/dL N 70- 100 [address] [place] [address] [phone] Lipid Profile 11/08/2016 [facility] Triglycerides 64 mg/dL N 14 (Trig/Chol/HDL) [address] [place] [address] [phone] Cholesterol 174 mg/dL N 15 HDL Cholesterol 56.4 mg/dL N 16 LDL Cholesterol 105 mg/dL N 17 Comp Metabolic Panel 06/17/2016 [facility] Sodium 137 mmol/L N 133-[address] [place] [address] [phone] Potassium 4.1 mmol/L N 3.5-5.0 Chloride 103 mmol/L N 101-111 Co2 Carbon Dioxide 30 mmol/L N 22-32 Anion Gap 4 mmol/L N 2-11 Glucose 91 mg/dL N 70-100 Blood Urea Nitrogen 18 mg/dL N 6-24 Creatinine 0.92 mg/dL N 0.51-0.95 BUN/Creatinine Ratio 19.6 N 8-20 Calcium 9.8 mg/dL N 8.6-10.3 Total Protein 6.8 g/dL N 6.4-8.9 Albumin 4.3 g/dL N 3.2-5.2 Globulin 2.5 g/dL N 2-4 Albumin/Globulin Ratio 1.7 N 1-3 Total Bilirubin 0.50 mg/dL N 0.2-1.0 Alkaline Phosphatase 63 U/L N 34-104 Alt 14 U/L N 7-52 Ast 20 U/L N 13-39 Egfr Non- 62.5 N >60 Egfr 80.4 N >60 18 Laboratory test finding 06/17/2016 [facility] Lipase 36 U/L N 11.0-82.[address] [place] [address] [phone] Amylase 72 U/L N 29-103 CBC Auto Diff 06/17/2016 [facility] White Blood 5.0 10^3/uL N 3.5-10.[address] [place] [address] [phone] Red Blood Count 4.15 10^6/uL N 4.0-5.4 Hemoglobin 13.2 g/dL N 12.0-16.0 Hematocrit 39 % N 35-47 Mean Corpuscular Volume 95 fL N 80-97 Mean Corpuscular Hemoglobin 32 pg High 27-31 Mean Corpuscular HGB Conc 33 g/dL N 31-36 Red Cell Distribution Width 13 % N 10.5-15 Platelet Count 248 10^3/uL N 150-450 Mean Platelet Volume 8 um3 N 7.4-10.4 Abs Neutrophils 2.2 10^3/uL N 1.5-7.7 Abs Lymphocytes 2.3 10^3/uL N 1.0-4.8 Abs Monocytes 0.4 10^3/uL N 0-0.8 Abs Eosinophils 0.1 10^3/uL N 0-0.6 Abs Basophils 0 10^3/uL N 0-0.2 Abs Nucleated RBC 0 10^3/uL N Granulocyte % 43.3 % N 38-83 Lymphocyte % 45.8 % N 25-47 Monocyte % 8.9 % N 1-9 Eosinophil % 1.3 % N 0-6 Basophil % 0.7 % N 0-2 Nucleated Red Blood Cells % 0.1 N Laboratory test 09/01/2015 [facility] Glucose 96 mg/dL N 70- 100 [address] [place] [address] [phone] Lipid Profile 09/01/2015 [facility] Triglycerides 63 mg/dL N 20 (Trig/Chol/HDL) [address] [place] [address] [phone] Cholesterol 161 mg/dL N 21 HDL Cholesterol 55.3 mg/dL N 22 LDL Cholesterol 93 mg/dL N 23 Basic Metabolic Panel 09/06/2014 [facility] Sodium 136 mmol/L N 133-[address] [place] [address] [phone] Potassium 4.0 mmol/L N 3.5-5.0 Chloride 103 mmol/L N 101-111 Co2 Carbon Dioxide 26 mmol/L N 22-32 Anion Gap 7 mmol/L N 2-11 Glucose 89 mg/dL N 70-100 Blood Urea Nitrogen 18 mg/dL N 6-24 Creatinine 0.86 mg/dL N 0.51-0.95 BUN/Creatinine Ratio 20.9 High 8-20 Calcium 8.9 mg/dL N 8.6-10.3 Egfr Non- 68.0 N >60 Egfr 87.5 N >60 25 Lipid Profile 09/06/2014 [facility] Triglycerides 74 mg/dL N 26 (Trig/Chol/HDL) [address] [place] [address] [phone] Cholesterol 168 mg/dL N 27 HDL Cholesterol 49.7 mg/dL N 28 LDL Cholesterol 104 mg/dL N 29 Lyme Western 07/03/2012 [facility] Lyme Disease Negative Negative Blot [address] [place] [place] [address] [phone] Lyme Disease IgG Bands Present p58, p41, kDa Lyme Disease IgM Ab WB Negative Negative Lyme Disease IgM Bands Present No bands detecte <SEE NOTE> kDa 30 Lyme Disease Interpretation See Comment 31 Laboratory test 07/03/2012 [facility] Lyme Disease Positive Negative [address] [place] [address] [phone] Lyme Western 06/08/2012 [facility] Lyme Disease Negative Negative Blot [address] [place] [address] [phone] Lyme Disease IgG Bands Present p58, p41, kDa Lyme Disease IgM Ab WB Negative Negative Lyme Disease IgM Bands Present No bands detecte <SEE NOTE> kDa 33 Lyme Disease Interpretation See Comment 34 Laboratory test 06/08/2012 [facility] Lyme Disease Positive Negative [address] [place] [address] [phone] Hemoglobin A1c 5.7 % Less than 6.0 36 Vitamin D, 25 06/08/2012 [facility] 25-Hydroxy Vitamin <4.0 ng/ mL Hydroxy [address] [place] D2 [place] [address] [phone] 25-Hydroxy Vitamin D3 25 ng/mL 25-Hydroxy Vitamin D Total 25 ng/mL 37 Vitamin D 1,25 06/08/2012 [facility] Vitamin D 55 pg/mL 18- 78 38 And Vitamin D,[address] 1,25[place] [address] [phone] Laboratory test 06/08/2012 [facility] Insulin Level 7.9 2.6 - [address] mcIU/mL 24.9 [place], [place] [phone] Comp Metabolic 06/08/2012 [facility] Sodium 136 133-[address] mmol/[place] [address] [phone] Potassium 3.9 mmol/L 3.5-5.0 Chloride 107 mmol/L 101-111 Co2 Carbon Dioxide 24.0 mmol/L 22-32 Anion Gap 5.0 mmol/L 2-11 Glucose 96 mg/dL 70-100 Blood Urea Nitrogen 16 mg/dL 6-24 Creatinine 0.80 mg/dL 0.50-1.40 BUN/Creatinine Ratio 20.0 8-20 Calcium 9.4 mg/dL 8.1-9.9 Total Protein 6.2 g/dL 6.2-8.1 Albumin 3.9 g/dL 3.6-5.4 Globulin 2.3 g/dL 2-4 Albumin/Globulin Ratio 1.7 1-3 Total Bilirubin 0.6 mg/dL 0.4-1.5 Alkaline Phosphatase 78 U/L 30-110 Alt 15 U/L 14-54 Ast 18 U/L 12-42 Egfr Non- 74.5 >60 Egfr 95.8 >60 40 Laboratory test 06/08/2012 [facility] TSH (Thyroid 2.25 0.34- 5.60 [address] Stimulating miu/[place] [address] Horm) [phone] LDH 137 U/L 95-185 42 CBC With 06/08/2012 [facility] White Blood 3.7 10^3/uL Low 4.8 -10.8 Manual Diff [address] [place] [address] [phone] Red Blood Count 3.92 10^6/uL Low 4.0-5.4 Hemoglobin 12.6 g/dL 12.0-16.0 Hematocrit 37 % 35-47 Mean Corpuscular Volume 95 fL 80-97 Mean Corpuscular Hemoglobin 32 pg High 27-31 Mean Corpuscular HGB Conc 34 g/dL 31-36 Red Cell Distribution Width 13 % 10.5-15 Platelet Count 233 10^3/uL 150-450 Mean Platelet Volume 9 um3 7.4-10.4 Abs Neutrophils 1.6 10^3/uL 1.5-7.7 Abs Lymphocytes 1.7 10^3/uL 1.0-4.8 Abs Monocytes 0.3 10^3/uL 0-0.8 Abs Eosinophils 0.1 10^3/uL 0-0.6 Abs Basophils 0 10^3/uL 0-0.2 Abs Nucleated RBC 0 10^3/uL Neutrophil % 44 % 38-83 Lymphocytes % 40 % 25-47 Monocytes % 13 % 0-13 Reactive Lymph % 3 % 0-6 RBC Morphology Normal Normal Ua Routine 06/05/2012 [facility] Ua Specific Kechi 1.000 Ua PH 5 Ua Color pale yellow Ua Appera clear Ua WBC neg Ua Protein neg Ua Glucose neg Ua Ketones neg Ua Bilirubin neg Ua Urobilinogen neg Ua Nitrite neg Ua Occult Blood neg Laboratory test 12/12/2011 [facility] Throat Beta (SEE NOTE) [address] [place] [address] [phone] Surgical 04/10/2011 [facility] Surgical [address] Pathology ----- <[place] [address] NOTE> [phone] Laboratory test 04/05/2011 [facility] Cytology [address] ----- <[place] [address] NOTE> [phone] CBC With Manual 03/19/2011 [facility] White Blood 5.5 CUMM 4.8-[address] Count .8 [place] [address] [phone] Red Cell Count 4.13 CUMM Low 4.2-5.4 Hemoglobin 13.4 g/dL 12.0-16.0 Hematocrit 39 % 35-47 Mean Corpuscular Volume 94 um3 79-97 Mean Corpuscular Hemoglob 33 pg High 27-31 Mean Corpuscular HGB Cone 35 g/dL 32-36 Redcell Distribution WDTH 13 % 10.5-15 Platelet Count 244 CUMM 150-450 Mean Platelet Volume 9.0 um3 7.4-10.4 Polysegmented Neutrophil 70 % 38-83 Lymphocyte 27 % 25-47 Eosinophil 3 % 0-6 Absolute Neutrophil Count 3.8 RBC Morphology NORMAL 1 Critical Result LACT:2.2 Called to [id number] at: 16:51:14 by:[id number] Read back by:[id number] [facility] Severe Sepsis and Septic Shock Management Bundle Measure requires all lactic acids initially measuring >2.0 mmol/L be repeated. 2 Because ethnic data is not always readily available, this report includes an eGFR for both -Americans and non- Americans. The National Kidney Disease Education Program (NKDEP) does not endorse the use of the MDRD equation for patients that are not between the ages of 18 and 70, are , have extremes of body size, muscle mass, or nutritional status, or are non- or non-. According to the National Kidney Foundation, irrespective of diagnosis, the stage of the disease is based on the level of kidney function: Stage Description GFR(mL/min/1.73 m(2)) 1 Kidney damage with normal or decreased GFR 90 2 Kidney damage with mild decrease in GFR 60-89 3 Moderate decrease in GFR 30-59 4 Severe decrease in GFR 15-29 5 Kidney failure <15 (or dialysis) 3 Troponin-I testing on Plasma Separator Tubes (PST) has a known false positive rate of 0.20-0.40%. All positive troponins reflex immediate secondary confirmatory testing. 4 Influenza A negative, Influenza B negative 5 Desirable: <150 Borderline High: 150-199 High: 200-499 Very High: >500 6 Desirable: <200 Borderline High: 200-239 High: >239 7 Low: <40 Desirable: 40-60 High: >60 8 Desirable: <100 Near Optimal: 100-129 Borderline High: 130-159 High: 160-189 Very High: >189 9 [id number] 10 SEE RESULT BELOW Name: CONY MACK : [address]: Courtney Lea MD Acct: [id number] Unit: [id number] AGE: 62 Location: [facility] Re01/12/18 SEX: F Status: DEP REF SPEC: [id number] DIRK: 01/12/[address] [facility] [address]: Courtney Gil MD REQ: [id number] RECD: 01/12/18 STATUS: RODOLFO PEÑA DR: Jolly Patterson MD _ ORDERED: LEVEL 4 COMMENTS: [id number] FINAL DIAGNOSIS Colon, descending, biopsy: -- Hyperplastic polyp. POST-OPERATIVE DIAGNOSIS Colonoscopy: very difficult colon to cecum; tortuous left; adult to pediatrics - gastroscope; sigmoid diverticulosis; descending 3 mm polyp - biopsy GROSS DESCRIPTION The specimen is received in formalin labeled, Biopsy Descending Colon Polyp, and consists of a 0.4 x 0.3 x 0.1 cm antonio-pink irregular to polypoid soft tissue fragment which is submitted entirely in one cassette. Signed by and Reported on: Louis Craft MD 1127 END OF REPORT DEPARTMENT OF PATHOLOGY, [address] [place] [address] Louis Craft M.D. Director [facility] # [id number] 11 [id number] 12 SEE RESULT BELOW Name: UNIQUEANTIONE : [address]: David Conklin MD Acct: [id number] Unit: [id number] AGE: 61 Location: [facility] Re01/23/17 SEX: F Status: DEP ER SPEC: [id number] DIRK: 01/23/17-[address] [facility] [address]: David Conklin MD REQ: [id number] RECD: 01/23/17 STATUS: ABDELRAHMAN PEÑA DR: [facility] Jennifer Barlow [employer] _ SOURCE: URINE SPDESC: ORDERED: Urine Culture COMMENTS: [id number] Procedure Result Reported Site Urine Culture Final 01/25/17- 0837 ML Organism 1 ESCHERICHIA COLI Spencer Count 50-75,000 (Many) CFU/ML 1. ESCHERICHIA COLI M.I.C. RX --------- ------ Ampicillin <=2 S Cefazolin <=4 S Cefepime <=1 S Ceftriaxone <=1 S Ciprofloxacin <=0.25 S Gentamicin <=1 S Levofloxacin <=0.12 S Meropenem <=0.25 S Nitrofurantoin <=16 S Tetracycline <=1 S Pipercillin/Tazobactam <=4 S Trimethoprim/Sulfamethoxazole <=20 S Amoxicillin/Clavulanic Acid <=2 S Aztreonam <=1 S Contact the Microbiology Department for any additional antibiotic reporting. * ML - MAIN LAB ([facility]) . END OF REPORT * ML=Testing performed at Main Lab DEPARTMENT OF PATHOLOGY, [address] [place] [id number] Louis Craft M.D. Director [facility] # [id number] 13 FASTING 10 HOUR 14 Desirable <150 Borderline high 150-199 High 200-499 Very High >500 15 Desirable <200 Borderline high 200-239 High >239 16 Low <40 Desirable: 40-60 High: >60 17 Desirable: <100 mg/dL Near Optimal: 100-129 mg/dL Borderline High: 130-159 mg/dL High: 160-189 mg/dL Very High: >189 mg/dL 18 Because ethnic data is not always readily available, this report includes an eGFR for both -Americans and non- Americans. The National Kidney Disease Education Program (NKDEP) does not endorse the use of the MDRD equation for patients that are not between the ages of 18 and 70, are , have extremes of body size, muscle mass, or nutritional status, or are non- or non-. According to the National Kidney Foundation, irrespective of diagnosis, the stage of the disease is based on the level of kidney function: Stage Description GFR(mL/min/1.73 m(2)) 1 Kidney damage with normal or decreased GFR 90 2 Kidney damage with mild decrease in GFR 60-89 3 Moderate decrease in GFR 30-59 4 Severe decrease in GFR 15-29 5 Kidney failure <15 (or dialysis) 19 FASTING 12 HOUR 20 Desirable <150 Borderline high 150-199 High 200-499 Very High >500 21 Desirable <200 Borderline high 200-239 High >239 22 Low <40 Desirable: 40-60 High: >60 23 Desirable: <100 mg/dL Near Optimal: 100-129 mg/dL Borderline High: 130-159 mg/dL High: 160-189 mg/dL Very High: >189 mg/dL 24 PT IS FASTING 25 Because ethnic data is not always readily available, this report includes an eGFR for both -Americans and non- Americans. The National Kidney Disease Education Program (NKDEP) does not endorse the use of the MDRD equation for patients that are not between the ages of 18 and 70, are , have extremes of body size, muscle mass, or nutritional status, or are non- or non-. According to the National Kidney Foundation, irrespective of diagnosis, the stage of the disease is based on the level of kidney function: Stage Description GFR(mL/min/1.73 m(2)) 1 Kidney damage with normal or decreased GFR 90 2 Kidney damage with mild decrease in GFR 60-89 3 Moderate decrease in GFR 30-59 4 Severe decrease in GFR 15-29 5 Kidney failure <15 (or dialysis) 26 Desirable <150 Borderline high 150-199 High 200-499 Very High >500 27 Desirable <200 Borderline high 200-239 High >239 28 Low <40 Desirable: 40-60 High: >60 29 Desirable: <100 mg/dL Near Optimal: 100-129 mg/dL Borderline High: 130-159 mg/dL High: 160-189 mg/dL Very High: >189 mg/dL 30 No bands detected 31 Specific serologic response to B. burgdorferi infection is not detected, but cannot rule out early infection during which low or undetectable antibody levels to B. burgdorferi may be present. If clinically indicated, a new serum specimen should be submitted in 7-14 days. CDC criteria require >=5 bands for IgG or >=2 bands for IgM for the Immunoblot to be considered positive. Bands (e.g.,p41) may be detected in patients without Lyme disease, and patterns not meeting the CDC criteria should be interpreted with caution. Immunoblot should be ordered only on specimens that are positive or equivocal by a FDA-licensed Lyme disease antibody screening test (e.g., EIA). Test Performed by: [place] [address] Nailhead Puncher: Walter Barragan III, M.D. 32 Not diagnostic. Supplemental testing ordered by reflex. Test Performed by: [place] [address] Nailhead Puncher: Walter Barragan III, M.D. 33 No bands detected 34 Specific serologic response to B. burgdorferi infection is not detected, but cannot rule out early infection during which low or undetectable antibody levels to B. burgdorferi may be present. If clinically indicated, a new serum specimen should be submitted in 7-14 days. CDC criteria require >=5 bands for IgG or >=2 bands for IgM for the Immunoblot to be considered positive. Bands (e.g.,p41) may be detected in patients without Lyme disease, and patterns not meeting the CDC criteria should be interpreted with caution. Immunoblot should be ordered only on specimens that are positive or equivocal by a FDA-licensed Lyme disease antibody screening test (e.g., EIA). Test Performed by: [place] [address] Nailhead Puncher: Walter Barragan III, M.D. 35 Not diagnostic. Supplemental testing ordered by reflex. Test Performed by: [place] [address] Nailhead Puncher: Walter Barragan III, M.D. 36 Therapeutic target for the treatment of diabetes Mellitus patients is <7% HBA1C, and in selective patients <6.0%.Please refer to [place] [employer] Diabetic care guidelines for further information. 37 -- REFERENCE VALUE -- 25-HYDROXY D TOTAL (D2+D3) Optimum levels in the normal population are 25-80 Test Performed by: [place] [address] Nailhead Puncher: Walter Barragan III, M.D. 38 Test Performed by: [place] [address] Nailhead Puncher: Walter Barragan III, M.D. 39 Test Performed by: [place] [address] Nailhead Puncher: Walter Barragan III, M.D. 40 Because ethnic data is not always readily available, this report includes an eGFR for both -Americans and non- Americans. The National Kidney Disease Education Program (NKDEP) does not endorse the use of the MDRD equation for patients that are not between the ages of 18 and 70, are , have extremes of body size, muscle mass, or nutritional status, or are non- or non-. According to the National Kidney Foundation, irrespective of diagnosis, the stage of the disease is based on the level of kidney function: Stage Description GFR(mL/min/1.73 m(2)) 1 Kidney damage with normal or decreased GFR 90 2 Kidney damage with mild decrease in GFR 60-89 3 Moderate decrease in GFR 30-59 4 Severe decrease in GFR 15-29 5 Kidney failure <15 (or dialysis) 41 PT IS FASTING 42 PT IS FASTING 43 RUN DATE: 12/14/11 [facility] LAB LIVE PAGE 1 RUN TIME: [address] [place] [address] Specimen Inquiry Name: CONY PAGE : [address]: Monserrat Fisher NP Acct: [id number] Unit: [id number] AGE: 56 Location: [facility] Re12/12/11 SEX: F Status: REG REF SPEC: [id number] DIRK: 12/12/11-[address]: Monserrat Fisher NP REQ: [id number] RECD: 12/12/11 STATUS: COMP _ SOURCE: THROAT SPDESC: ORDERED: Throat Beta Str QUERIES: Medent Number [id number] Procedure Result Verified Site Throat Beta Strep Culture Final 12/14/11- 0803 ML Negative For Group A Beta Streptococcus END OF REPORT * ML=Testing performed at Main Lab DEPARTMENT OF PATHOLOGY, [address] [place] [address] Louis Craft M.D. [facility] Permit #[id number] ---- RUN DATE: 04/11/11 [facility] NMI LIVE PAGE 1 RUN TIME: 1419 Specimen Inquiry RUN USER: INTERFACE -- Name: CONY PAGE JO Status: REG REF Re04/10/11 Age/Sex: 56/F Unit#: [id number] Location: END : [birth year] -- Specimen: [id number] RODOLFO Spec Date: 04/10/[address]: Maynor moreno MD Spec Type: SURGICAL P Received: 04/10/11-8323 Copies to: Jennifer Varn [facility] SPECIMEN ESOPHAGEAL BIOPIES HISTORY POST-OP DIAGNOSIS: Hiatal hernia, loosening of fundoplication wrap, non-e rosive reflux disease CLINICAL INFORMATION: Gastroesophageal reflux disease; history of fundopl ication GROSS DESCRIPTION The specimen is received in formalin labelled Cony Page, Esophageal Biopsy, and consists of two fragments of white tissue each measuring 0.3 x 0.2 x 0.2 cm. Submitted entirely, one cassette. DIAGNOSIS Esophagus, biopsy: Squamous mucosa with no significant pathologic changes. Signed Electronically by: MARTINEZ ELLIOTT 04/11/11 1419 -- -- DEPARTMENT OF PATHOLOGY, [address] [place] [address] [facility] Permit #[id number] Louis Craft M.D. Director Martinez Elliott M.D. Supervisor Dry Cleaning Dir walker -- 45 ---- RUN DATE: 04/08/11 [facility] NMI LIVE PAGE 1 RUN TIME: 925 Specimen Inquiry RUN USER: INTERFACE -- Name: CONY PAGE JO Status: REG REF Re04/05/11 Age/Sex: 56/F Unit#: [id number] Location: [facility] : [birth year] -- Specimen: [id number] Spec Date: 04/05/[address]: Jennifer rahman LAB DIRECTOR Spec Type: CYTOLOGY Received: 04/05/11-7210 Copies to: SOURCE ECTOCERVICAL/ENDOCERVICAL Thin Prep with Reflex HPV Test PATIENT INFORMATION ACTUAL COLLECTION DATE: 04/05/11 ? No POST MENOPAUSAL? No HYSTERECTOMY? Yes PREVIOUS ABNORMAL PAP SMEARS No PATIENT HISTORY: Last menstrual period at age 39 ADEQUACY OF SPECIMEN Satisfactory for evaluation * See note. DIAGNOSIS NEGATIVE FOR INTRAEPITHELIAL LESION OR MALIGNANCY * NOTE Laboratory information system history indicates hysterectomy with cervix removed 02/1996. This Pap test was evaluated with the assistance of the TrayPrep Pap Test Imaging System. The Pap Smear is a screening test designed to aid in the detection of premalign ant and malignant conditions of the uterine cervix. It is not a diagnostic procedure a nd should not be used as the sole means of detecting cervical cancer. Both false- positiv e and false-negative reports do occur. Depending on your risk status, a Pap smear shira uld be obtained and evaluated every one to three years. Final Interpretation electronically signed by: Theron MAGAÑA(ASCP) 04/08/11 092 6 -- DEPARTMENT OF PATHOLOGY, [address] [place] [address] [facility] Permit #[id number] Louis Craft M.D. Director Martinez Elliott M.D. Supervisor Dry Cleaning Dir walker -- Procedures Date Code Description Status 06/01/2018 03281 Moderate Sedation Services; Same Phys Each Additional Completed 15 Mins 06/01/2018 45425 Moderate Sedation Services; Same Phys Intl 15 Mins; PT Completed >=5 Years 06/01/2018 82358 ECHO Transthorasic Realtime 2D W Doppler & Color Flow Completed Hosp 06/01/2018 [address] Sequential Atrial And Ventricular Completed 01/20/2018 [id number] Colonoscopy Completed 10/31/2017 [id number] Mammogram Completed 04/16/2017 84040 Sleep Study Unattended,HRT Rate,Oxygen Sat,Resp Completed Effort/Airflow 10/01/2016 [id number] Mammogram Completed 09/29/2015 [id number] Mammogram Completed 09/21/2014 [id number] Mammogram Completed 09/20/2013 [id number] Mammogram Completed 09/18/2012 [id number] Mammogram Completed 04/17/2011 [id number] Mammogram Completed 05/25/2009 [id number] Mammogram Completed 12/10/2007 [id number] Colonoscopy Completed 12/03/2007 [id number] Bone Mineral Density Test Completed 10/19/2007 69238 EKG Tracing & Interpretation Completed Encounters Type Date Location Provider Dx Diagnosis Office Visit 06/02/2018 [facility] Jarrell I45.5 Other specified 9:46a Assoc,joseline Hills M.D. heart block Hospitalists R55 Syncope and collapse K21.0 Gastro-esophageal reflux disease with esophagitis Z86.69 Personal history of dis of the nervous sys and sense organs Office Visit 05/31/2018 9:46a [facility] Presley I46.9 Cardiac arrest , Assocjoseline M.D. cause unspecified Hospitalists K21.9 Gastro-esophageal reflux disease without esophagitis G43.909 Migraine, unsp, not intractable, without status migrainosus Office Visit 04/06/2018 11:20a [facility] Internal Jennifer Barlow, J20.9 Acute bronchitis, Medicine N.P. unspecified Office Visit 02/16/2018 9:00a [facility] Internal Jennifer Varlacey, Z00.00 Encntr for general Medicine N.P. adult medical exam w/o abnormal findings K21.9 Gastro-esophageal reflux disease without esophagitis G47.33 Obstructive sleep apnea (adult) (pediatric) G43.909 Migraine, unsp, not intractable, without status migrainosus M72.2 Plantar fascial fibromatosis J06.9 Acute upper respiratory infection, unspecified Office Visit 02/04/2018 8:20a [facility] Dermatology AT Kristina Fairbanks, L82.1 Other seborrheic Jose Eduardo QUARLES keratosis L71.8 Other rosacea Z08 Encntr for follow-up exam after trtmt for malignant neoplasm Z85.828 Personal history of other malignant neoplasm of skin Office Visit 12/26/2017 [facility] Internal Barney Overton NP J01.90 Acute sinusitis , 4:00p Medicine unspecified Office Visit 06/26/2017 [facility] G47.33 Obstructive sleep 8:15a [facility] Golden RN, apnea (adult) [facility] (pediatric) Office Visit 05/14/2017 [facility] Internal Barney Overton NP J01.90 Acute sinusitis , 11:40a Medicine unspecified Office Visit 04/28/2017 [facility] G47.33 Obstructive sleep 10:45a [facility] RN, apnea (adult) [facility] (pediatric) K21.9 Gastro-esophageal reflux disease without esophagitis Office Visit 04/16/2017 4:20p [facility] Internal Ghanshyam Howe01.90 Acute sinusitis, Medicine [employer] unspecified Office Visit 04/08/2017 9:30a [facility] Ashlee R06.83 Snoring [facility] G47.10 Hypersomnia, unspecified G47.50 Parasomnia, unspecified Office Visit 03/03/2017 9:00a [facility] Internal Medicine Barney Overton NP R06.83 Snoring R40.0 Somnolence Office Visit 02/26/2017 1:40p [facility] Internal Juanito J01.90 Acute sinusitis, Medicine Janak Eid unspecified Office Visit 11/26/2016 4:20p [facility] Internal Jolly J01.90 Acute sinusitis, Medicine Janak Patterson unspecified H01.009 Unspecified blepharitis unspecified eye, unspecified eyelid H81.313 Aural vertigo, bilateral Office Visit 11/20/2016 3:20p [facility] Internal Jennifer Barlow, Z00.01 Encounter for Medicine N.P. general adult medical exam w abnormal findings K21.9 Gastro-esophageal reflux disease without esophagitis G43.909 Migraine, unsp, not intractable, without status migrainosus J30.9 Allergic rhinitis, unspecified E78.00 Pure hypercholesterolemia, unspecified H10.89 Other conjunctivitis Office Visit 10/14/2016 1:20p [facility] Barney Overton NP J01.90 Acute sinusitis, Medicine unspecified Office Visit 07/19/2016 1:20p [facility] Internal Jennifer Barlow, H66.92 Otitis media, Medicine N.P. unspecified, left ear Office Visit 06/17/2016 10:00a [facility] Barney Overton NP R11.2 Nausea with Medicine vomiting, unspecified Office Visit 04/02/2016 2:00p [facility] Internal Jennifer Barlow, J20.9 Acute bronchitis, Medicine N.P. unspecified Office Visit 03/05/2016 10:20a [facility] Internal Jennifer Barlow, B02.9 Zoster without Medicine N.P. complications Office Visit 02/22/2016 11:00a [facility] Internal Barney Overton NP J01.00 Acute maxillary Medicine sinusitis, unspecified Office Visit 01/25/2016 11:40a [facility] Internal Jennifer Barlow, J01.00 Acute maxillary Medicine N.P. sinusitis, unspecified Office Visit 10/20/2015 9:40a [facility] Internal Jennifer Barlow, J01.00 Acute maxillary Medicine N.P. sinusitis, unspecified Office Visit 09/18/2015 9:20a [facility] Internal Jennifer Barlow, Z00.00 Encntr for general Medicine N.P. adult medical exam w/o abnormal findings Z12.31 Encntr screen mammogram for malignant neoplasm of breast K21.9 Gastro-esophageal reflux disease without esophagitis J30.9 Allergic rhinitis, unspecified G43.909 Migraine, unsp, not intractable, without status migrainosus E78.0 Pure hypercholesterolemia M54.31 Sciatica, right side Office Visit 05/22/2015 11:40a [facility] Internal Jennifer Barlow, J01.00 Acute maxillary Medicine N.P. sinusitis, unspecified Office Visit 04/11/2015 10:20a [facility] Internal Jennifer Barlow, J01.00 Acute maxillary Medicine N.P. sinusitis, unspecified J01.10 Acute frontal sinusitis, unspecified Office Visit 01/25/2015 1:20p [facility] Internal Jennifer Barlow, J01.00 Acute maxillary Medicine N.P. sinusitis, unspecified Office Visit 12/08/2014 9:40a [facility] Internal Dedrick Rubi NP J01.00 Acute maxillary Medicine sinusitis, unspecified J01.90 Acute sinusitis, unspecified Office Visit 09/14/2014 9:10a [facility] Internal Alethea V70.0 Examination Medicine Janak Morgan General Medical Routine AT Health Care Facility V76.10 Screening For Malignant Neoplasm Breast V58.69 Medications Correction (Current) Use Encounter 530.81 Esophageal Reflux 477.9 Rhinitis Allergic Cause Unspec Office Visit 08/23/2014 9:50a [facility] Internal Alethea Morgan, 846.9 Sprains & Strains Medicine Janak Sacroiliac Region Unspec Site Office Visit 02/22/2014 8:40a [facility] Internal Jennifer Barlow, 719.47 Pain Joint Ankle & Medicine N.P. Foot Office Visit 01/27/2014 3:00p [facility] Internal Barney Overton NP 461.8 Sinusitis Acute Medicine Other Office Visit 12/10/2013 3:30p [facility] Davonte Overton NP 461.9 Sinusitis Acute Medicine Unspec Office Visit 10/14/2013 11:40a [facility] Internal Jennifer Barlow, 461.9 Sinusitis Acute Medicine N.P. Unspec Office Visit 06/11/2013 3:20p [facility] Internal Jennifer Barlow 461.9 Sinusitis Acute Medicine N.P. Unspec Office Visit 04/01/2013 11:00a [facility] Internal Jennifer Barlow 461.9 Sinusitis Acute Medicine N.P. Unspec Office Visit 10/20/2012 4:20p [facility] Davonte Barlow, 784.92 Jaw Pain Medicine N.P. Office Visit 09/11/2012 3:20p [facility] Internal Jennifer Varn, V70.0 Examination Medicine N.P. General Medical Routine AT Health Care Facility V76.10 Screening For Malignant Neoplasm Breast 530.81 Esophageal Reflux 346.90 Migraine Unspec W/O Intractable W/O Status Migrainosus 272.4 Hyperlipidemia Other Unspec 351.8 Nerve Disorder Facial Other 300.00 Anxiety State Unspec Office Visit 06/12/2012 8:40a [facility] Internal Jennifer Barlow, 780.8 Generalized Medicine N.P. Hyperhidrosis 780.79 Malaise And Fatigue Other Office Visit 06/05/2012 9:20a [facility] Internal Jennifer Bernicen, 780.79 Malaise And Medicine N.P. Fatigue Other 780.8 Generalized Hyperhidrosis 783.5 Polydipsia Office Visit 12/12/2011 9:30a [facility] Internal Monserrat Curryll, 462 Pharyngitis Acute Medicine N.P. 386.11 Vertigo Benign Paroxysmal Position 787.02 Nausea Alone Office Visit 11/25/2011 4:20p [facility] Internal Jennifer Barlow, 461.9 Sinusitis Acute Medicine N.P. Unspec 386.11 Vertigo Benign Paroxysmal Position Office Visit 04/05/2011 8:40a [facility] Internal Jennifer Barolw, V70.0 Examination Medicine N.P. 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 Vaccination & Inoculation/Influenza 530.81 Esophageal Reflux 346.90 Migraine Unspec W/O Intractable W/O Status Migrainosus Office Visit 04/24/2010 3:15p DO Not Use Sherry Mcgee, 682.3 Cellulitis & Jean Claude Briceno, FACP Abscess Upper Arm & Forearm 388.71 Otalgia Otogenic Pain Office Visit 02/26/2010 DO Not Use Jennifer 388.70 Otalgia & Earache 2:45p Jean Claude Barlow, N.P. Unspec Office Visit 06/28/2009 DO Not Use Jennifer 558.9 Gastroenteritis & 11:45a [facility] Science [facility]ist-Fisher Varn, N.P. Colitis Noninfectious Other Office Visit 05/19/2009 DO Not Use Jennifer V72.31 Routine Wafer Cleaner 3:00p [facility] Varn, N.P. Examination Office Visit 02/14/2009 DO Not Use Jennifer 380.10 Otitis Externa 4:00p [facility] Varn, N.P. Infective Unspec Office Visit 12/30/2008 DO Not Use Jennifer 780.79 Malaise And Fatigue 4:00p [facility] Varn, N.P. Other 477.9 Rhinitis Allergic Cause Unspec Office Visit 10/21/2008 DO Not Use Jennifer Varn, 627.2 Menopausal Or 3:45p [facility] N.P. Female Climacteric State, Symptomatic Office Visit 05/23/2008 DO Not Use Jennifer Varn, 382.9 Otitis Media 3:00p [facility] N.P. Unspec 461.9 Sinusitis Acute Unspec Office Visit 05/05/2008 10:30a DO Not Use Jennifer Varn, 382.9 Otitis Media [facility] Science Specialist-[facility] N.P. Unspec 461.9 Sinusitis Acute Unspec Office Visit 04/14/2008 DO Not Use Teofilo, 465.9 URI Upper 1:15p Health Science SpecialistMarce Calderon M.D. Respiratory Infections Acute Unspec Sites Office Visit 01/05/2008 DO Not Use Jennifer Varn, 372.14 Conjunctivitis 3:45p [facility] N.P. Chronic Allergic Other Office Visit 11/02/2007 DO Not Use Jennifer Varn, 272.4 Hyperlipidemia 10:00a [facility] N.P. Other Unspec Office Visit 10/19/2007 DO Not Use Jennifer Varn, V72.31 Routine Wafer Cleaner 1:15p [facility] N.P. Examination Office Visit 01/14/2007 DO Not Use Jennifer Varn, 616.10 Vaginitis & 3:45p [facility] N.P. Vulvovaginitis Unspec Office Visit 01/02/2007 DO Not Use Jennifer Varn, 616.10 Vaginitis & 3:00p [facility] N.P. Vulvovaginitis Unspec Office Visit 05/26/2006 DO Not Use Jennifer Varn, 704.8 Hair & Hair 10:45a [facility]-Fisher N.P. Follicle Diseases Other Spec 461.9 Sinusitis Acute Unspec Office Visit 05/02/2006 DO Not Use Jennifer Varn, 112.1 Candidiasis The 3:45p [facility]-Fisher N.P. Vulva & Vagina Office Visit 04/11/2006 DO Not Use Jennifer Varn, V72.31 Routine Wafer Cleaner 2:30p [facility]-Fisher N.P. Examination Plan of Treatment Future Appointment(s):06/25/2018 9:00 am - Ica Pacer Schedule at [facility]02/05/2019 7:45 am - Kristina Fairbanks MD at [facility] Lanweftqluw49/ 26/2019 9:00 am - Jennifer Varn, N.P. at [facility] Internal Sdxrcjrm75/06/2019 8:15 am - Cammy Golden DNP, RN, LAB DIRECTOR-BC at [facility] - Bridgett Grimm, NPZ95.0 Presence of cardiac pacemakerFollow up:f/u with pacemaker clinic in 2 weeks.Recommendations:You may go back to work on light duty for 4 weeks. I will fill out paperwork that you brought and send back to you. You may resume driving Please continue to use left arm sling for another 4 weeks. No soaking left chest wound site ( hot tub, bath) No lifting more than 10 lbs for another 4 weeks.I10 Essential (primary) hypertensionRecommendations:You may stop Norvasc however, Please monitor BP if consistently > 130/80 please restart Norvasc 2.5mg by mouth daily and notify me.I34.0 Nonrheumatic mitral (valve) insufficiencyFollow up:f/u with Dr. Posey in 3-4 months.
--- OUTSIDE RECORDS SUMMARY | 2018-06-15 19:07 | XMS REPORT | Continuity of Care Document ---
:1955 External Reference #:[id number] Author Name Jodi Tabares Care Team Providers Name Role Phone Jolly Patterson MD Primary Care Physician Unavailable Payers Date Identification Numbers Payment Provider Subscriber Effective: 2013 Policy Number: [id number] [employer]ets Cony Mack PayID: [id number] [address] [address] [place] [address] Effective: 2011 Policy Number: [id number] [employer] Cony Mack Expires: 2013 PayID: [id number] [address] [address] [place] [address] Advance Directives Type Date Description Status Comment Other Directive 11/13/2015 [facility] Care Proxy Current and Verified Problems Date Description Provider Status Onset: 03/19/2011 Migraine Jennifer Barlow, N.P. Active Onset: 03/19/2011 Gastroesophageal reflux disease Jennifer Barlow, N.P. 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 Tobacco Use Start: Unknown Former Cigarette End: Unknown Smoker Smoking Status Reviewed: 04/06/18 Former Cigarette Smoker ETOH Use Currently consumes 1 glass of wine 1-2x alcohol per week Tobacco Use Start: Unknown Patient is a former Experimented as a End: Unknown smoker teenager Recreational Drug Use Denies Drug Use Exercise Type/Frequency Exercises regularly 3 - 5 days per week Allergies, Adverse Reactions, Alerts Date Description Reaction Status Severity Comments 04/24/2010 Bactrim Active 03/20/2011 Omeprazole Active Throat swelled Medications Medication Date Status Form Strength Qnty SIG Indications Ordering Provider Ventolin HFA 04/06 Active Aerosol 108(90Bas 18uni 1 to 2 J20.9 e) ts inhalatio Varn, N.P. mcg/Act ns every 4 hours as needed Fluconazole 04/06 Active Tablets 150mg 3tabs one by J20.9 mouth Varn, N.P. every 3 days for 3 doses Pantoprazole 06/[address] 40mg 90tab take 1 K21.9 Barney Sodium s tablet by DIEGO Overton mouth once daily Estradiol 09/14 Active Patches 0.025mg/2 8unit apply one Biweek 4HR s patch Varn, N.P. twice weekly Imitrex 05/18 Active Tablets 50mg 20tab one G43.909 Sherry s tablet Arely, po, june M.D., FACP repeat in 2 hours prn as needed for headache Vitamin D3 Active Capsules 1000Unit 1 by Unknown /0000 mouth every day Benzonatate 04/06 Hx Capsules 200mg 30cap one by J20.9 s mouth Varn, N.P. - three 04/20 times daily as needed for cough Fluticasone 04/06 Hx Suspension 50mcg/Act 16uni 2 sprays J20.9 ts each Varn, N.P. - nostril 04/20 daily needed Azithromycin 04/06 Hx Tablets 250mg 6tabs two tabs J20.9 day one, Varn, N.P. - one daily 04/16 till Fluconazole 12/27 Hx Tablets 150mg 3tabs 1 tablet Barney one time DIEGO Overton - for yeast 01/03 infection . june repeat 3 days later if needed Amoxicillin/Clavu 12/26 Hx Tablets 875-125mg 20tab take one [facility]. Barney lanate Potassium s tablet DIEGO Overton - q12 hours 01/05 for days Levofloxacin 05/14 Hx Tablets 500mg 10tab one by [facility].Renetta Barney s mouth Brooklynn [employer] - daily for 05/24 10 days Fluconazole 05/14 Hx Tablets 150mg 3tabs 1 tablet [facility].[address] [place] [address] one time DIEGO Overton - for yeast 05/24 infection . may repeat 3 days later if needed Doxycycline 04/16 Hx Capsules 100mg 20cap one [facility].[address] [place] [address] Hyclate s tablet DIEGO Overton - twice 04/23 daily for 10 days. Fluconazole 04/16 Hx Tablets 150mg 3tabs one by [facility].Renetta Barney mouth may DIEGO Overton - repeat in 04/23 3 days needed Amoxicillin/Clavu 02/26 Hx Tablets 875-125mg 20tab 1 by [facility]. Juanito lanate Potassium s mouth Pachikara, - twice a M.D. Fluconazole 02/26 Hx Tablets 150mg 3tabs once J01.Renetta Pitkin daily Pachikara, - M.D. 03/31 Amoxicillin 11/26 Hx Tablets 500mg 30tab 1 by J01.90 s mouth Cotton, - three M.D. 02/26 times a day x 10 days Fluconazole 11/26 Hx Tablets 150mg 3tabs 1 tablet J01.90 one time Cotton, - for yeast M.D. 03/02 infection . may repeat 3 days later if needed Azelastine HCL 11/26 Hx Solution 0.05% 6ml instill 1 H01.009 (Ophthalmic) drop into Cotton, - both eyes M.D. 03/02 2 times /2017 per day for allergies Tobramycin 11/20 Hx Solution 0.3% 5ml 1 drop in each eye Varn, N.P. - every 11/27 4hours 7 days Erythromycin 11/20 Hx Ointment 5mg/GM 3.500 apply to gm right Varn, N.P. - eyelids 12/04 twice a /2016 day until clear Amoxicillin/Clavu 10/14 Hx Tablets 875-125mg 20tab take one Barney lanate s tablet Brooklynn, [employer] WHE[employer] INS[employer]OR - q12 hours 10/20 for days Fluconazole 10/14 Hx Tablets 150mg 3tabs one by J01. mouth Brooklynn, [employer] WHE[employer] INSPECTOR - every 3 Azithromycin 07/19 Hx Tablets 250mg 6tabs two tabs H66.92 day one, Varn, N.P. - one daily 08/02 till Fluconazole 07/19 Hx Tablets 150mg 3tabs one by H66.92 mouth Varn, N.P. - every 3 Ondansetron 06/17 Hx Tablets 4mg 30tab dissolve R11.2 Dispers s one Brooklynn [employer] - tablet 07/19 every 8 hours as needed for nausea. Fluconazole 04/12 Hx Tablets 150mg 2tabs one by mouth june Varn, N.P. - repeat in 04/18 3 days needed Cheratussin ac 04/02 Hx Syrup 100-10mg/ 120ml 1 - 2 J20.9 5ML teaspoons Varn, N.P. - by mouth 04/16 every hours as needed Ventolin HFA 04/02 Hx Aerosol 108(90Bas 1inha 1 to 2 J20.9 e) ler inhalatio Varn, N.P. - mcg/Act ns every 04/16 4 hours as needed Valtrex 03/05 Hx Tablets 1gm 21tab one po B02.9 s tid x 7 Varn, N.P. - 03/12 Benzonatate 02/21 Hx Capsules 100mg 30cap take one J01. s or two Brooklynn, [employer] WHE[employer] INSPECTOR - capsules 03/04 every hours as needed for cough. Fluconazole 02/21 Hx Tablets 150mg 3tabs one by J01. mouth Brooklynn, [employer] WHE[employer] INSPECTOR - every 3 starting day 3 of antibioti c. Levofloxacin 02/21 Hx Tablets 500mg 10tab one by J01.00 s mouth Brooklynn, [employer] WHE[employer] INS[employer]OR - daily for 03/04 10 Amoxicillin/Clavu 01/24 Hx Tablets 875-125mg 20tab one J01. Jennifer lanate Potassium s tablet by Varn, N.P. - mouth 02/03 daily for 10 days Fluconazole 01/24 Hx Tablets 150mg 3tabs one by J01.00 Jennifer /2016 mouth Varn, N.P. - every 3 04/02 ays for doses Amoxicillin/Clavu 10/19 Hx Tablets 875-125mg 28tab one J01. Jennifer lanate Potassium s tablet by Varn, N.P. - mouth 11/02 daily for 14 days Fluconazole 10/19 Hx Tablets 150mg 4tabs one by J01.00 Jennifer /2016 mouth Varn, N.P. - every 3 01/24 days for doses Transderm-Scop 10/19 Hx Patches 1mg/3Days 3unit apply one J01. Jennifer (1.5 MG) 72HR s patch Varn, N.P. - behind 02/21 ear 72 hours Cipro 10/19 Hx Tablets 500mg 20tab 1 by J01.00 Jennifer /2016 s mouth Varn, N.P. - twice a 10/29 day 10 days Amoxicillin/Clavu 05/21 Hx Tablets 875-125mg 28tab one J01. Jennifer lanate Potassium s tablet by Varn, N.P. - mouth 06/04 daily for 1 days Augmentin 04/11 Hx Tablets 875-125mg 20tab one by J01.00 Jennifer s mouth Varn, N.P. - every 12 04/21 hours ten days Fluconazole 04/11 Hx Tablets 150mg 3tabs one by Jennifer mouth Varn, N.P. - every 3 starting day 3 of antibioti c. Nasonex 01/25 Hx Suspension 50mcg/Act 17uni instill 1 J01.00 ts spray Varn, N.P. - into each 05/21 nostril once daily Augmentin 01/25 Hx Tablets 875-125mg 20tab one by J01.00 s mouth Varn, N.P. - every 12 12/12 hours ten days Fluticasone 12/08 Hx Suspension 50mcg/Act 16gm 2 sprays 461.9 Dedrick each DIEGO Rubi - nostril 01/25 daily as needed Fluconazole 12/08 Hx Tablets 150mg 3tabs one by 461.9 mouth Varn, N.P. - every 3 Amoxicillin 12/08 Hx Tablets 500mg 14tab 1 tab by J01.00 Dedrick s mouth DIEGO Rubi - twice a 12/16 day 7 days Fexofenadine HCL 09/14 Hx Tablets 180mg 90tab 1 by Alethea /2014 s mouth Eddie, - every day M.D. 07/19 Pantoprazole 09/[address] 20mg 90tab 1 by K21.9 Jennifer Sodium s mouth Varn, N.P. - every day 06/17 Alprazolam 03/02 Hx Tablets 0.25mg 20tab one by F41.9 Jennifer /2015 s mouth up Varn, N.P. - to three 04/07 times daily as needed for anxiety MDD 3 Azithromycin 01/27 Hx Tablets 250mg 6tabs 2 tabs by 461.8 Barney mouth DIEGO Overton - every day 02/22 x1 day, tab by mouth every day x 4 days Augmentin 12/10 Hx Tablets 875-125mg 20tab 1 tablet 461.9 Barney s by mouth DIEGO Overton - q12 hours 12/28 for days Azithromycin 10/14 Hx Tablets 250mg 6tabs two tabs 461.9 Jennifer /2014 day one, Varn, N.P. - one daily 10/24 till Fluticasone 08/13 Hx Suspension 50mcg/Act 16uni 2 sprays Jennifer Propionate ts each Varn, N.P. - nostril 09/14 daily needed Azithromycin 06/11 Hx Tablets 250mg 6tabs two tabs 461.9 day one, Varn, N.P. - one daily 06/21 till Fluticasone 06/11 Hx Suspension 50mcg/Act 16gm 2 sprays 461.9 Jennifer Propionate each Varn, N.P. - nostril 06/16 daily needed Augmentin 04/01 Hx Tablets 875-125mg 20tab one by 461.9 s mouth Varn, N.P. - every 12 04/11 hours ten days Fluconazole 04/01 Hx Tablets 150mg 3tabs one by 461.9 Barney mouth Brooklynn [employer] - every 3 Alprazolam 09/11 Hx Tablets 0.25mg 20tab one by 300.00 s mouth up Varn, N.P. - to three 02/22 times daily as needed for anxiety Pantoprazole 09/[address] 40mg 30tab take 1 Sodium s tablet by Varn, N.P. - mouth 09/14 daily if needed Vivelle-Dot 06/12 Hx Patches 0.05mg/24 8unit apply one Biweek HR s patch Varn, N.P. - twice 09/14 Ibuprofen 12/11 Hx Tablets 400mg 100ta 400 mg po 462 Monserrat /2011 bs q4-6h; Phillip, - max 2400 N.P. 12/11 mg/day Prochlorperazine 12/11 Hx Tablets 5mg 30tab 1 tab po 787.02 Monserrat Maleate s tid prn Phillip - N.P. 06/05 Amoxicillin/Potas 11/24 Hx Tablets 875-125mg 20tab 1 po bid 461.9 Jennifer sium Clavulanate s for 10 Varn, N.P. - days 12/04 Fluticasone 11/24 Hx Suspension 50mcg/Act 16gm 1 spray 461.9 Jennifer Propionate each Varn, N.P. - nostril 04/01 daily needed Fluconazole 11/24 Hx Tablets 150mg 2tabs one by 461.9 mouth may Varn, N.P. - repeat in 11/30 3 days as needed Meclizine HCL 11/24 Hx Tablets 25mg 30tab 02/25 - 1 386.11 s tablet hs Varn, N.P. - prn 12/11 vertigo Vivelle-Dot 06/06 Hx Patches 0.025mg/2 8unit apply one Biweek 4HR s patch Arely, - twice M.D., FACP 06/12 Vgifekz-E-Oblv 04/05 Hx Solution 10-10-1mg 5ml 5 gtts 380.9 Jolly /ml bid for 7 Cotton, - days M.D. 11/24 Ranitidine HCL 03/20 Hx Tablets 150mg 60tab take one s tablet by Arely, - mouth M.D., FACP 06/05 twice day Omeprazole 03/[address] 40mg 90cap 1 po qd 530.81 s Arely, - M.D., FACP 03/20 Imitrex 03/19 Hx Tablets 50mg 9tabs one 346.90 tablet as Arely, - needed M.D., FACP 06/05 headache Cephalexin 04/24 Hx Capsules 250mg 20cap take 1 Sherry s four Arely, - times a M.D., FACP 03/19 day Pantoprazole 04/[address] 40mg 30tab take 1 Sherry Sodium s tablet by Arely, - mouth M.D., FACP 03/20 daily if needed Fluticasone 02/26 Hx Suspension 50mcg/Act 1bott 2 Sherry Propionate le inhalatio Arely, - ns each M.D., FACP 03/08 nostril once daily Diflucan 02/22 Hx Tablets 150mg 2tabs sig 1 po Sherry repeat in Arely, - 3 days if M.D., FACP 11/24 needed Meclizine 02/19 Hx Tablets 12.5mg 60tab 1 tablet s four - times 03/19 daily needed for motion sickness Sumatriptan 01/15 Hx Tablets 50mg 9tabs take 1 Jolly tablet by Cotton, - mouth if M.D. 12/10 for headache Vivelle-Dot 11/29 Hx PTTW 0.05mg/24 8unit apply 1 HR s patch two Arely, - times a M.D., FACP 11/29 week directed Vivelle-Dot 11/29 Hx Patches 0.0375mg/ 8unit Apply 1 Sherry Biweek 24HR s Patch Two Arely, - Times A M.D., FACP Ceftin Hx Tablets 250mg 10tab take one Unknown / s tablet - twice 04/24 daily 10 days Eric-Carb Forte Hx Tablets 1250mg daily Unknown /0000 - 04/07 Rhinocort Allergy Hx Suspension 32mcg/Act Unknown /0000 - 04/07 Immunizations CPT Code Status Date Vaccine Lot # [id number] Given 12/09/2017 Influenza Virus Vaccine, Quadrivalent, Split, Preservative Free 45963 Given 12/28/2016 Influenza Virus Vaccine, Quadrivalent, Split, Preservative Free Q2039 Given 12/11/2015 Flu Vaccine NOS Q2035 Given 12/02/2014 Afluria Vaccine Q2037 Given 11/22/2013 Fluvirin Im 3Yrs And Older Q2035 Given 12/16/2012 Afluria Vaccine Q2037 Given 01/23/2012 Fluvirin Im 3Yrs And Older [id number] Given 04/05/2011 Tdap - Tetanus/Diptheria/Acellular Pertussis [id number] Given 03/19/2011 Influenza Virus 3Yrs & Over [id number] Vital Signs Date Vital Result Comment 04/06/2018 11:21am Height 61 inches 5'1" Weight [...] Sitting 86 mmHg Body Temperature 97.7 F [facility] BMI (Body Mass Index) 26.8 kg/m2 11/25/2011 [...] H/L Range Note CBC Auto Diff 05/31/2018 [facility] White Blood 6.3 10^3/uL N 3.5-10.[address] [place] [address] [phone] Red Blood Count 4.05 10^6/uL N 3.70-4.87 [...] Red Blood Cells % 0 Inr/Protime 05/31/2018 [facility] Inr 0.89 N 0.77-1.[address] [place] [address] [phone] Laboratory test 05/31/2018 [facility] Lactic Acid 2.2 High 0.5 -2.0 [address] mmol/[place] [address] [phone] Comp Metabolic 05/31/2018 [facility] Sodium 137 N 135-145 Panel 101 mmol/[place] [address] [phone] Potassium 3.8 mmol/L N 3.5-5.0 Chloride 106 [...] Egfr 67.4 >60 2 Laboratory test 05/31/2018 [facility] Magnesium 2.1 mg/dL N 1.9-2.7 finding [address] [place] [address] [phone] Creatine Kinase(CK) 120 U/L N 10-223 Alcohol < 10 mg/dL N <10 TSH (Thyroid Stim Horm) 5.17 mcIU/mL N 0.34-5.60 Urinalysis Profile 05/31/2018 [facility] Urine Color Straw [address] [place] [address] [phone] Urine Appearance Clear Urine Specific Freedom 1.006 Low 1.010-1.030 Urine pH 7.0 N 5-9 Urine Urobilinogen Negative Negative Urine Ketones Negative Negative Urine Protein Negative Negative Urine Leukocytes Negative Negative Urine Blood Negative Negative Urine Nitrite Negative Negative Urine Bilirubin Negative Negative Urine Glucose 1+(50 mg/dL) Abnormal Negative Laboratory test 05/31/2018 [facility] Troponin-I (TnI) 0.01 ng/ mL <0.04 3 finding [address] [place] [address] [phone] Laboratory test 04/06/2018 [employer] Influenza A/B negative 4 finding Rapid Lipid Profile 02/06/2018 [facility] Triglycerides 114 mg/dL 5 (Trig/Chol/HDL) [address] [place] [address] [phone] Cholesterol 194 mg/dL 6 HDL Cholesterol 53.8 mg/dL 7 LDL Cholesterol 117 mg/dL 8 Laboratory test 02/06/2018 [facility] Glucose 101 mg/dL High 70-[address] [place] [address] [phone] Laboratory test 01/12/2018 [facility] Surgical SEE 9, finding [address] Interface Order RESULT 10 [place] [address] BELOW [phone] Urine Culture 01/23/2017 [facility] Urine Culture SEE 11, And [address] RESULT 12 [place] [address] BELOW [phone] Laboratory test 11/08/2016 [facility] Glucose 97 mg/dL N 70- 100 [address] [place] [address] [phone] Lipid Profile 11/08/2016 [facility] Triglycerides 64 mg/dL N 14 (Trig/Chol/HDL) [address] [place] [address] [phone] Cholesterol 174 mg/dL N 15 HDL Cholesterol 56.4 mg/dL N 16 LDL Cholesterol 105 mg/dL N 17 Comp Metabolic Panel 06/17/2016 [facility] Sodium 137 mmol/L N 133-[address] [place] [address] [phone] Potassium 4.1 mmol/L N 3.5-5.0 Chloride 103 [...] N >60 18 Laboratory test finding 06/17/2016 [facility] Lipase 36 U/L N 11.0-82.[address] [place], [place] [address] [phone] Amylase 72 U/L N 29-103 CBC Auto Diff 06/17/2016 [facility] White Blood 5.0 10^3/uL N 3.5-10.[address] [place] [address] [phone] Red Blood Count 4.15 10^6/uL N 4.0-5.4 [...] Cells % 0.1 N Laboratory test 09/01/2015 [facility] Glucose 96 mg/dL N 70- 100 [address] [place] [address] [phone] Lipid Profile 09/01/2015 [facility] Triglycerides 63 mg/dL N 20 (Trig/Chol/HDL) [address] [place], [place] [address] [phone] Cholesterol 161 mg/dL N 21 HDL Cholesterol 55.3 mg/dL N 22 LDL Cholesterol 93 mg/dL N 23 Basic Metabolic Panel 09/06/2014 [facility] Sodium 136 mmol/L N 133-[address] [place] [address] [phone] Potassium 4.0 mmol/L N 3.5-5.0 Chloride 103 mmol/L N 101-111 Co2 Carbon Dioxide 26 mmol/L N 22-32 Anion Gap 7 mmol/L N 2-11 Glucose 89 mg/dL N 70-100 Blood Urea Nitrogen 18 mg/dL N 6-24 Creatinine 0.86 mg/dL N 0.51-0.95 BUN/Creatinine Ratio 20.9 High 8-20 Calcium 8.9 mg/dL N 8.6-10.3 Egfr Non- 68.0 N >60 Egfr 87.5 N >60 25 Lipid Profile 09/06/2014 [facility] Triglycerides 74 mg/dL N 26 (Trig/Chol/HDL) [address] [place] [address] [phone] Cholesterol 168 mg/dL N 27 HDL Cholesterol 49.7 mg/dL N 28 LDL Cholesterol 104 mg/dL N 29 Lyme Western 07/03/2012 [facility] Lyme Disease Negative Negative Blot [address] [place] [address] [phone] Lyme Disease IgG Bands Present p58, p41, kDa Lyme Disease IgM Ab WB Negative Negative Lyme Disease IgM Bands Present No bands detecte <SEE NOTE> kDa 30 Lyme Disease Interpretation See Comment 31 Laboratory test 07/03/2012 [facility] Lyme Disease Positive Negative 32 finding [address] [place] [address] [phone] Lyme Western 06/08/2012 [facility] Lyme Disease Negative Negative Blot [address] [place] [address] [phone] Lyme Disease IgG Bands Present p58, p41, kDa Lyme Disease IgM Ab WB Negative Negative Lyme Disease IgM Bands Present No bands detecte <SEE NOTE> kDa 33 Lyme Disease Interpretation See Comment 34 Laboratory test 06/08/2012 [facility] Lyme Disease Positive Negative 35 finding [address] [place] [address] [phone] Hemoglobin A1c 5.7 % Less than 6.0 36 Vitamin D, 25 06/08/2012 [facility] 25-Hydroxy Vitamin <4.0 ng/ mL Hydroxy [address] D2 [place] [address] [phone] 25-Hydroxy Vitamin D3 25 ng/mL 25-Hydroxy Vitamin D Total 25 ng/mL 37 Vitamin D 1,25 06/08/2012 [facility] Vitamin D 55 pg/mL 18- 78 38 And Vitamin D,[address] 1,25[place] [address] [phone] Laboratory test 06/08/2012 [facility] Insulin Level 7.9 2.6 - [address] mcIU/mL 24.9 [place] [address] [phone] Comp Metabolic 06/08/2012 [facility] Sodium 136 133-[address] mmol/[place] [address] [phone] Potassium 3.9 mmol/L 3.5-5.0 Chloride 107 mmol/L [...] Egfr 95.8 >60 40 Laboratory test 06/08/2012 [facility] TSH (Thyroid 2.25 0.34- 5.60 [address] Stimulating miu/[place] [address] Horm) [phone] LDH 137 U/L 95-185 42 CBC With 06/08/2012 [facility] White Blood 3.7 10^3/uL Low 4.8 -10.8 Manual Diff [address] [place] [address] [phone] Red Blood Count 3.92 10^6/uL Low 4.0-5.4 [...] RBC Morphology Normal Normal Ua Routine 06/05/2012 [employer] [facility] [facility] Ua Specific Freedom 1.000 Ua PH 5 Ua Color pale yellow Ua Appera clear Ua WBC neg Ua Protein neg Ua Glucose neg Ua Ketones neg Ua Bilirubin neg Ua Urobilinogen neg Ua Nitrite neg Ua Occult Blood neg Laboratory test 12/12/2011 [facility] Throat Beta (SEE NOTE) [address] [place] [address] [phone] Surgical 04/10/2011 [facility] Surgical [address] Pathology ----- <[place] [address] NOTE> [phone] Laboratory test 04/05/2011 [facility] Cytology [address] ----- <[place] [address] NOTE> [phone] CBC With Manual 03/19/2011 [facility] White Blood 5.5 CUMM 4.8-[address] Count .8 [place] [address] [phone] Red Cell Count 4.13 CUMM Low 4.2-5.4 [...] NORMAL 1 Critical Result LACT:2.2 Called to BAY at: 16:51:14 by:[id number] Read back by:BAY CARRERA Severe Sepsis and Septic Shock Management Bundle [...] 130-159 High: 160-189 Very High: >189 9 [id number] SEE RESULT BELOW Name: CONY MACK : [address]: Courtney Lea MD Acct: [id number] Unit: [id number] AGE: 62 Location: [facility] Re01/12/18 SEX: F Status: DEP REF SPEC: [id number] DIRK: 01/12/18 [facility] DR: Courtney Gil MD REQ: [id number] RECD: 01/12/18 STATUS: RODOLFO PEÑA DR: Jolly Patterson MD _ ORDERED: LEVEL 4 COMMENTS: [id number] FINAL DIAGNOSIS Colon, descending, biopsy: -- Hyperplastic [...] 1127 END OF REPORT DEPARTMENT OF PATHOLOGY, [address] [place] [address] Louis Craft M.D. Director [facility] # [id number] 12 SEE RESULT BELOW Name: CONY MACK : [address]: David Conklin MD Acct: [id number] Unit: [id number] AGE: 61 Location: [facility] Re01/23/17 SEX: F Status: DEP ER SPEC: [id number] DIRK: 01/23/17-1515 [facility] DR: David Conklin MD REQ: [id number] RECD: 01/23/17 STATUS: ABDELRAHMAN PEÑA DR: Isa [facility] Jennifer Barlow [employer] INSPECT[employer] _ SOURCE: URINE SPDESC: ORDERED: Urine Culture COMMENTS: [id number] Procedure Result Reported Site Urine Culture Final 01/25/17- 836 ML Organism 1 ESCHERICHIA COLI [place] Count 50-75,000 (Many) CFU/ML 1. ESCHERICHIA COLI [...] antibiotic reporting. * ML - MAIN LAB ([facility]) . END OF REPORT * ML=Testing performed at Main Lab DEPARTMENT OF PATHOLOGY, [address] [place] [address] Louis Craft M.D. Director [facility] # [id number] 13 FASTING 10 HOUR 14 Desirable <150 [...] screening test (e.g., EIA). Test Performed by: [place] [address] Director Of Testing: Walter Barragan III, M.D. 32 Not diagnostic. Supplemental testing ordered by reflex. Test Performed by: [place] [address] Director Of Testing: Walter Barragan III, M.D. 33 No bands [...] screening test (e.g., EIA). Test Performed by: [place] [address] Director Of Testing: Walter Barragan III, M.D. 35 Not diagnostic. Supplemental testing ordered by reflex. Test Performed by: [place] [address] Director Of Testing: Walter Barragan III, M.D. 36 Therapeutic target for the treatment of diabetes Mellitus patients is <7% HBA1C, and in selective patients <6.0%.Please refer to [place] [employer] Diabetic care guidelines for further information. 37 -- REFERENCE VALUE -- 25-HYDROXY D TOTAL (D2+D3) Optimum levels in the normal population are 25-80 Test Performed by: [place] [address] Director Of Testing: Walter Barragan III, M.D. 38 Test Performed by: [place] [address] Director Of Testing: Walter Barragan III, M.D. 39 Test Performed by: [place] [address] Director Of Testing: Walter Barragan III, M.D. 40 Because ethnic [...] PT IS FASTING 43 RUN DATE: 12/14/11 [facility] LAB LIVE PAGE 1 RUN TIME: [address] [place] [address] Specimen Inquiry Name: CONY PAGE : [address]: Monserrat Fisher NP Acct: [id number] Unit: [id number] AGE: 56 Location: [facility] Re12/12/11 SEX: F Status: REG REF SPEC: [id number] DIRK: 12/12/11-1003 [facility] DR: Monserrat Fisher NP REQ: [id number] RECD: 12/12/11 STATUS: COMP _ SOURCE: THROAT SPDESC: ORDERED: Throat Beta Str QUERIES: Medent Number [id number] Procedure Result Verified Site Throat Beta Strep Culture Final 12/14/11- 0803 ML Negative For Group A Beta Streptococcus END OF REPORT * ML=Testing performed at Main Lab DEPARTMENT OF PATHOLOGY, [address] [place] [address] Louis Craft M.D. [facility] Permit #[id number] ---- RUN DATE: 04/11/11 [facility] NMI LIVE PAGE 1 RUN TIME: 1419 Specimen Inquiry RUN USER: INTERFACE -- Name: CONY PAGE Status: REG REF Re04/10/11 Age/Sex: 56/F Unit#: [id number] Location: [facility]. : 59 -- Specimen: [id number] SOUT Spec Date: 04/10/[address]: Maynor moreno MD Spec Type: SURGICAL P Received: 04/10/11-3026 Copies to: Jennifer Barlow [facility] SPECIMEN ESOPHAGEAL BIOPIES HISTORY POST-OP DIAGNOSIS: [...] 04/11/11 1419 -- -- DEPARTMENT OF PATHOLOGY, [address] [place] [address] [facility] Permit #[id number] Louis Craft M.D. Director Martinez Elliott M.D. Transactional Attorney Dir walker -- 47 ---- RUN DATE: 04/08/11 [facility] NMI LIVE PAGE 1 RUN TIME: 925 Specimen Inquiry RUN USER: INTERFACE -- Name: CONY PAGE JO Status: REG REF Re04/05/11 Age/Sex: 56/F Unit#: [id number] Location: [facility] : 59 -- Specimen: [id number] SOUT Spec Date: 04/05/[address]: Jennifer rahman [facility] Spec Type: CYTOLOGY Received: 04/05/11-0483 Copies to: SOURCE ECTOCERVICAL/ENDOCERVICAL Thin Prep with [...] was evaluated with the assistance of the InExchangePrep Pap Test Imaging System. The Pap Smear [...] 04/08/11 092 6 -- DEPARTMENT OF PATHOLOGY, [address] [place] [address] [facility] Permit #[id number] Louis Craft M.D. Director Martinez Elliott M.D. Transactional Attorney Dir walker -- Procedures Date Code Description Status 01/20/2018 08073334 Colonoscopy Completed 10/31/2017 [id number] Mammogram Completed 04/16/2017 32132 Sleep Study Unattended,HRT Rate,Oxygen Sat,Resp Completed Effort/Airflow 10/01/2016 [id number] Mammogram Completed 09/29/2015 [id number] Mammogram Completed 09/21/2014 [id number] Mammogram Completed 09/20/2013 [id number] Mammogram Completed 09/18/2012 [id number] Mammogram Completed 04/17/2011 [id number] Mammogram Completed 05/25/2009 [id number] Mammogram Completed 12/10/2007 [id number] Colonoscopy Completed 12/03/2007 [id number] Bone Mineral Density Test Completed 10/19/2007 84297 EKG Tracing & Interpretation Completed Encounters Type Date Location Provider Dx Diagnosis Office Visit 04/06/2018 [facility] Internal Jennifer Barlow, J20.9 Acute bronchitis , 11:20a Medicine N.P. unspecified Office Visit 02/16/2018 [facility] Internal Jennifer Barlow, Z00.00 Encntr for general 9:00a Medicine N.P. adult medical exam w/o abnormal findings K21.9 Gastro-esophageal reflux disease without esophagitis G47.33 Obstructive sleep apnea (adult) (pediatric) G43.909 Migraine, unsp, not intractable, without status migrainosus M72.2 Plantar fascial fibromatosis J06.9 Acute upper respiratory infection, unspecified Office Visit 02/04/2018 8:20a [facility] Dermatology AT Kristina Scotthens, L82.1 Other seborrheic Jose Eduardo QUARLES keratosis L71.8 Other rosacea Z08 Encntr for follow-up exam after trtmt for malignant neoplasm Z85.828 Personal history of other malignant neoplasm of skin Office Visit 12/26/2017 [facility] Internal Barney Overton NP J01.90 Acute sinusitis , 4:00p Medicine unspecified Office Visit 06/26/2017 [facility] And Cammy G47.33 Obstructive sleep 8:15a [facility], JOSELINE, apnea (adult) [facility] (pediatric) Office Visit 05/14/2017 [facility] Internal Barney Overton NP J01.90 Acute sinusitis , 11:40a Medicine unspecified Office Visit 04/28/2017 [facility] Cammy G47.33 Obstructive sleep 10:45a [facility] RN, apnea (adult) [facility] (pediatric) K21.9 Gastro-esophageal reflux disease without esophagitis Office Visit 04/16/2017 4:20p [facility] Internal Ghanshyam Howe01.90 Acute sinusitis, Medicine [employer]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 Office Visit 04/08/2017 9:30a [facility] Ashlee R06.83 Snoring [facility] G47.10 Hypersomnia, unspecified G47.50 Parasomnia, unspecified Office Visit 03/03/2017 9:00a [facility] Internal Medicine Barney Overton NP R06.83 Snoring R40.0 Somnolence Office Visit 02/26/2017 1:40p [facility] Internal Juanito J01.90 Acute sinusitis, Medicine Janak Eid unspecified Office Visit 11/26/2016 4:20p [facility] Internal Jolly J01.90 Acute sinusitis, Medicine Janak Patterson unspecified H01.009 Unspecified blepharitis unspecified eye, unspecified eyelid H81.313 Aural vertigo, bilateral Office Visit 11/20/2016 3:20p [facility] Internal Jennifer Barlow, Z00.01 Encounter for Medicine N.P. general adult medical exam w abnormal findings K21.9 Gastro-esophageal reflux disease without esophagitis G43.909 Migraine, unsp, not intractable, without status migrainosus J30.9 Allergic rhinitis, unspecified E78.00 Pure hypercholesterolemia, unspecified H10.89 Other conjunctivitis Office Visit 10/14/2016 1:20p [facility] Internal Barney Overton NP J01.90 Acute sinusitis, Medicine unspecified Office Visit 07/19/2016 1:20p [facility] Internal Jennifer Barlow, H66.92 Otitis media, Medicine N.P. unspecified, left ear Office Visit 06/17/2016 10:00a [facility] Internal Barney Overton NP R11.2 Nausea with Medicine vomiting, unspecified Office Visit 04/02/2016 2:00p [facility] Internal Jennifer Barlow, J20.9 Acute bronchitis, Medicine N.P. unspecified Office Visit 03/05/2016 10:20a [facility] Internal Jennifer Barlow, B02.9 Zoster without Medicine N.P. complications Office Visit 02/22/2016 11:00a [facility] Internal Barney Overton NP J01.00 Acute maxillary Medicine sinusitis, unspecified Office Visit 01/25/2016 11:40a [facility] Internal Jennifer Barlow J01.00 Acute maxillary Medicine N.P. sinusitis, unspecified Office Visit 10/20/2015 9:40a [facility] Internal Jennifer Barlow J01.00 Acute maxillary Medicine N.P. sinusitis, unspecified Office Visit 09/18/2015 9:20a [facility] Internal Jennifer Barlow, Z00.00 Encntr for general Medicine N.P. adult medical exam w/o abnormal findings Z12.31 Encntr screen mammogram for malignant neoplasm of breast K21.9 Gastro-esophageal reflux disease without esophagitis J30.9 Allergic rhinitis, unspecified G43.909 Migraine, unsp, not intractable, without status migrainosus E78.0 Pure hypercholesterolemia M54.31 Sciatica, right side Office Visit 05/22/2015 11:40a [facility] Internal Jennifer Barlow, J01.00 Acute maxillary Medicine N.P. sinusitis, unspecified Office Visit 04/11/2015 10:20a [facility] Internal Jennifer Barlow J01.00 Acute maxillary Medicine N.P. sinusitis, unspecified J01.10 Acute frontal sinusitis, unspecified Office Visit 01/25/2015 1:20p [facility] Internal Jennifer Barlow J01.00 Acute maxillary Medicine N.P. sinusitis, unspecified Office Visit 12/08/2014 9:40a [facility] Internal Dedrick Rubi NP J01.00 Acute maxillary Medicine sinusitis, unspecified J01.90 Acute sinusitis, unspecified Office Visit 09/14/2014 9:10a [facility] Internal Alethea V70.0 Examination Medicine Janak Morgan General Medical Routine AT Health Care Facility V76.10 Screening For Malignant Neoplasm Breast V58.69 Medications [facility] (Current) Use Encounter 530.81 Esophageal Reflux 477.9 Rhinitis Allergic Cause Unspec Office Visit 08/23/2014 9:50a [facility] Internal Alethea Morgan, 846.9 Sprains & Strains Medicine Janak Sacroiliac Region Unspec Site Office Visit 02/22/2014 8:40a [facility] Internal Jennifer Barlow, 719.47 Pain Joint Ankle & Medicine N.P. 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 Unspec Office Visit 06/11/2013 3:20p [facility] Internal Jennifer Barlow, 461.9 Sinusitis Acute Medicine N.P. Unspec Office Visit 04/01/2013 11:00a [facility] Internal Jennifer Barlow, 461.9 Sinusitis Acute Medicine N.P. Unspec Office Visit 10/20/2012 4:20p [facility] Internal Jennifer Barlow, 784.92 Jaw Pain Medicine N.P. Office Visit 09/11/2012 3:20p [facility] Internal Jennifer Barlow, V70.0 Examination Medicine N.P. General Medical Routine AT Health Care Facility V76.10 Screening For Malignant Neoplasm Breast 530.81 Esophageal Reflux 346.90 Migraine Unspec W/O Intractable W/O Status Migrainosus 272.4 Hyperlipidemia Other Unspec 351.8 Nerve Disorder Facial Other 300.00 Anxiety State Unspec Office Visit 06/12/2012 8:40a [facility] Internal Jennifer Barlow, 780.8 Generalized Medicine N.P. Hyperhidrosis 780.79 Malaise And Fatigue Other Office Visit 06/05/2012 9:20a [facility] Internal Jennifer Barlow, 780.79 Malaise And Medicine N.P. Fatigue Other 780.8 Generalized Hyperhidrosis 783.5 Polydipsia Office Visit 12/12/2011 9:30a [facility] Internal Monserrat Fisher, 462 Pharyngitis Acute Medicine N.P. 386.11 Vertigo Benign Paroxysmal Position 787.02 Nausea Alone Office Visit 11/25/2011 4:20p [facility] Internal Jennifer Barlow, 461.9 Sinusitis Acute Medicine N.P. Unspec 386.11 Vertigo Benign Paroxysmal Position Office Visit 04/05/2011 8:40a [facility] Internal Jennifer Barlow, V70.0 Examination Medicine N.P. 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 Unspec Office Visit 06/28/2009 DO Not Use Jennifer 558.9 Gastroenteritis & 11:45a Construction Equipment Mechan[employer] Varn, N.P. Colitis Noninfectious Other Office Visit 05/19/2009 DO Not Use Jennifer V72.31 Routine Property Worker 3:00p Construction Equipment Mechanic [employer] Varn, N.P. Examination Office Visit 02/14/2009 DO Not Use Jennifer 380.10 Otitis Externa 4:00p Construction Equipment Mechan[employer] Varn, N.P. Infective Unspec Office Visit 12/30/2008 DO Not Use Jennifer 780.79 Malaise And Fatigue 4:00p Construction Equipment Mechan[employer] Varn, N.P. Other 477.9 Rhinitis Allergic Cause Unspec Office Visit 10/21/2008 DO Not Use Jennifer Varn, 627.2 Menopausal Or 3:45p Construction Equipment [employer] N.P. Female Climacteric State, Symptomatic Office Visit 05/23/2008 DO Not Use Jennifer Varn, 382.9 Otitis Media 3:00p Construction Equipment Mechanic [employer] N.P. Unspec 461.9 Sinusitis Acute Unspec Office Visit 05/05/2008 10:30a DO Not Use Jennifer Varn, 382.9 Otitis Media Construction Equipment Mechanic [employer] N.P. Unspec 461.9 Sinusitis Acute Unspec Office Visit 04/14/2008 DO Not Use Radchristine, 465.9 URI Upper 1:15p Construction Equipment Mechan[employer] Kavin Calderon. Respiratory Infections Acute Unspec Sites Office Visit 01/05/2008 DO Not Use Jennifer Varn, 372.14 Conjunctivitis 3:45p Construction Equipment Mechan[employer] N.P. Chronic Allergic Other Office Visit 11/02/2007 DO Not Use Jennifer Varn, 272.4 Hyperlipidemia 10:00a Construction Equipment Mechanic [employer] N.P. Other Unspec Office Visit 10/19/2007 DO Not Use Jennifer Varn, V72.31 Routine Property Worker 1:15p Construction Equipment Mechanic [employer] N.P. Examination Office Visit 01/14/2007 DO Not Use Jennifer Varn, 616.10 Vaginitis & 3:45p Construction Equipment Mechan[employer] N.P. Vulvovaginitis Unspec Office Visit 01/02/2007 DO Not Use Jennifer Varn, 616.10 Vaginitis & 3:00p Construction Equipment Mechan[employer] N.P. Vulvovaginitis Unspec Office Visit 05/26/2006 DO Not Use Jennifer Varn, 704.8 Hair & Hair 10:45a Construction Equipment Mechan[employer] N.P. Follicle Diseases Other Spec 461.9 Sinusitis Acute Unspec Office Visit 05/02/2006 DO Not Use Jennifer Varn, 112.1 Candidiasis The 3:45p Construction Equipment Mechan[employer] N.P. Vulva & Vagina Office Visit 04/11/2006 DO Not Use Jennifer Varn, V72.31 Routine Property Worker 2:30p Construction Equipment Mechanic [employer] N.P. Examination Plan of Treatment Future Appointment(s):06/11/2018 12:15 pm - Bridgett Grimm NP at [facility]02/05/2019 7:45 am - Kristina Fairbanks MD at [facility] Uvychxugoft10/ 26/2019 9:00 am - Jennifer Barlow N.P. at [facility] Internal Nnkmuwkh27/06/2019 8:15 am - Cammy Golden DNP, RN, [facility]- at [facility] - Jennifer Barlow N.P.J20.9 Acute bronchitis, unspecifiedNew Medication: Ventolin HFA 108(90 Base) mcg/Act - 1 to 2 inhalations every 4 hours as neededFluconazole 150 mg - one by mouth every 3 days for 3 dosesBenzonatate 200 mg - one by mouth three times daily as needed for coughFluticasone Propionate 50 mcg/Act - 2 sprays each nostril daily as neededAzithromycin 250 mg - two tabs day one, one daily till goneNew Labs:Rapid Group A Strep, Ordered: Comments:For your bronchitis: I have sent a prescription to the pharmacy for Azithromycin. Take 2 tablets thefir day then 1 tablet daily until they are gone for a total of 5 days. The medicine stays in your system for an additional 5 days. I am also prescribing an inhaler for you to use. You may use 1 - 2 inhalations every 4 hours as you need it for shortness of breath or uncontrollable coughing. I sent gayle prescription for Benzonatate 200 mg.. You may take 1 tablet 3 times daily as you need it for your cough. If your symptoms do not improve or if you should start to feel worse call the office.
[2018-06-15 19:08] VITALS: BP 139/96
--- NOTE | 2018-06-15 19:35 | UC ---
Dizzy HPI HPI Summary: 63-year-old female comes in with a chief complaint of dizziness. About 3:00 at work patient was at her desk not being active suddenly felt lightheaded. It lasted a few brief seconds. Since that time patient says she doesn't feel quite right. No chest pain. The symptoms remind her of the symptoms she was having prior to her pacemaker placement on June 02, 2018. At that time she was having sinus pauses of up to 6 seconds and was having syncope due to it. - History Of Current Complaint Chief Complaint: UCGeneralIllness Stated Complaint: DIZZY Time Seen by Provider: 06/15/18 19:05 Pain Intensity: 5 - Allergies/Home Medications Allergies/Adverse Reactions: Allergies Allergy/AdvReac Type Severity Reaction Status Date / Time omeprazole Allergy Airway Verified 06/15/18 19:08 Obstruction sulfamethoxazole Allergy Blisters Verified 06/15/18 19:08 [From Bactrim] trimethoprim [From Bactrim] Allergy Blisters Verified 06/15/18 19:08 PMH/Surg Hx/FS Hx/Imm Hx Previously Healthy: Yes - PACEMAKER 06/02/2018 Cardiovascular History: Hypertension GI/ History: Gastroesophageal Reflux Other History Of: Negative For: Anticoagulant Therapy - Surgical History Surgical History: Yes Surgery Procedure, Year, and Place: SINUS 12+ YEARS AGO. ROOT CANAL 2 YEARS AGO. C SECTION 1974. HYSTERECTOMY LATE . HIATAL HERNIA REPAIR. pacemaker 06/02/18 - Family History Known Family History: Positive: Cardiac Disease Negative: Hypertension - Social History Alcohol Use: None Alcohol Amount: 1-2 glasses on weekend Substance Use Type: None Smoking Status (MU): Never Smoked Tobacco - Immunization History Most Recent Influenza Vaccination: UNKNOWN Most Recent Pneumonia Vaccination: UNKNOWN Review of Systems All Other Systems Reviewed And Are Negative: Yes Constitutional: Positive: Other - SEE HPI Skin: Positive: Negative Eyes: Positive: Negative ENT: Positive: Negative Respiratory: Positive: Negative Cardiovascular: Positive: Other - SEE HPI Gastrointestinal: Positive: Negative Motor: Positive: Negative Neurovascular: Positive: Negative Musculoskeletal: Positive: Negative Neurological: Positive: Negative Psychological: Positive: Negative Is Patient Immunocompromised?: No Physical Exam Triage Information Reviewed: Yes Appearance: Well-Appearing, No Pain Distress, Well-Nourished Vital Signs: Initial Vital Signs Temp 98.2 F 06/15/18 19:01 Pulse 78 06/15/18 19:01 Resp 16 06/15/18 19:01 BP 139/96 06/15/18 19:01 Pulse Ox 99 06/15/18 19:01 Vital Signs Reviewed: Yes Eye Exam: Normal Eyes: Positive: Conjunctiva Clear Neck: Positive: Supple Respiratory: Positive: Lungs clear, Normal breath sounds, No respiratory distress Cardiovascular: Positive: RRR Musculoskeletal Exam: Normal Musculoskeletal: Positive: Strength Intact, ROM Intact Neurological Exam: Normal Neurological: Positive: Alert, Muscle Tone Normal Psychological Exam: Normal Psychological: Positive: Age Appropriate Behavior Skin Exam: Normal Diagnostics - EKG Cardiac Rate: NL - AT 1915 Cardiac Rhythm: Sinus: Normal - 70 BPM Ectopy: None ST Segment: Normal Dizzy Course/Dx - Course Course Of Treatment: Discussed with Dr Posey, Cardiology. I recommended further evaluation in ED. Patient decline ambulance transport, her son will drive her. - Differential Dx/Diagnosis Provider Diagnosis: Dizziness Discharge - Sign-Out/Discharge Documenting (check all that apply): Patient Departure All imaging exams completed and their final reports reviewed: No Studies - Discharge Plan Condition: Stable Disposition: HOME-RECOMMEND TO ED Referrals: Jolly Patterson MD [Primary Care Provider] - Curly Posey MD [Medical Doctor] - Additional Instructions: GO DIRECTLY TO THE EMERGENCY DEPARTMENT FOR FURTHER EVALUATION. - Billing Disposition and Condition Condition: STABLE Disposition: Home-Recommend to ED
== END 2018-06-15 19:35 | disposition home health service (06) ==
LOC: UCEAST 18:59
DX: R42 Dizziness and giddiness (principal); I10 Essential (primary) hypertension; K21.9 Gastro-esophageal reflux disease without esophagitis; Z95.0 Presence of cardiac pacemaker; Z88.2 Allergy status to sulfonamides; Z88.8 Allergy status to other drugs, medicaments and biological substances
CPT/HCPCS: 99212; G0463

== ENCOUNTER 2018-06-15 20:11 | Emergency (ER) | payer BC ==
--- NOTE | 2018-06-15 20:44 | ED ---
Dizziness - HPI Summary HPI Summary: A 63 y/o F referred from [facility] presents to ED with c/o sudden-onset dizziness that was very quick and spontaneously resolved at 1500. She was at rest, seated at her computer at onset. The dizziness is described as lightheadedness, she thought she might faint. Associated sx: very nauseated, elevated BP, mild back pain between her shoulders (resolved). She had pacemaker surgery two weeks ago, because her heart was stopping. She sees Dr. Posey, cardiology. - History Of Current Complaint Chief Complaint: EDDizziness Stated Complaint: DIZZY SPELL JUST HAD A PACE MAKER PLACED PER PT Time Seen by Provider: 06/15/18 20:39 Hx Obtained From: Patient, Family/Histologic Aide - son Onset/Duration: Resolved Timing: Seconds Severity Initially: Moderate Severity Currently: None Character: Lightheaded Aggravating Factor(s): Nothing Associated Signs And Symptoms: Positive: Nausea, Other: - pos: mild back pain btwn shoulders, elevated BP - Allergies/Home Medications Allergies/Adverse Reactions: Allergies Allergy/AdvReac Type Severity Reaction Status Date / Time omeprazole Allergy Airway Verified 06/15/18 19:08 Obstruction sulfamethoxazole Allergy Blisters Verified 06/15/18 19:08 [From Bactrim] trimethoprim [From Bactrim] Allergy Blisters Verified 06/15/18 19:08 PMH/Surg Hx/FS Hx/Imm Hx Previously Healthy: No Endocrine/Hematology History: Denies: Hx Anticoagulant Therapy, Hx Diabetes, Hx Thyroid Disease Cardiovascular History: Reports: Hx Pacemaker/ICD Denies: Hx Congestive Heart Failure, Hx Deep Vein Thrombosis, Hx Hypertension , Hx Myocardial Infarction Respiratory History: Denies: Hx Asthma, Hx Chronic Obstructive Pulmonary Disease (COPD), Hx Lung Cancer, Hx Pneumonia, Hx Pulmonary Embolism GI History: Reports: Hx Ulcer Denies: Hx Gall Bladder Disease, Hx Gastrointestinal Bleed, Hx Urosepsis History: Denies: Hx Kidney Stones, Hx Renal Disease Musculoskeletal History: Denies: Hx Arthritis, Hx Osteoporosis Sensory History: Reports: Hx Contacts or Glasses Denies: Hx Hearing Aid Opthamlomology History: Reports: Hx Contacts or Glasses Neurological History: Reports: Hx Migraine - She is on Imetrix., Hx Seizures - When she was younger, but not on medication since her 20's by her report. Denies: Hx Dementia, Hx Transient Ischemic Attacks (TIA) Psychiatric History: Denies: Hx Anxiety, Hx Depression, Hx Panic Disorder, Hx Schizophrenia, Hx Bipolar Disorder - Cancer History Hx Chemotherapy: No Hx Radiation Therapy: No - Surgical History Surgery Procedure, Year, and Place: SINUS 12+ YEARS AGO. ROOT CANAL 2 YEARS AGO. C SECTION 1974. HYSTERECTOMY LATE . HIATAL HERNIA REPAIR. pacemaker 06/02/18 - Immunization History Date of Tetanus Vaccine: unk Date of Influenza Vaccine: unk Infectious Disease History: No Infectious Disease History: Reports: Hx Shingles - 02/2016 Denies: Traveled Outside the [place] in Last 30 Days - Family History Known Family History: Positive: Cardiac Disease Negative: Hypertension - Social History Occupation: Employed Full-time Lives: Alone Alcohol Use: None Alcohol Amount: 1-2 glasses on weekend Hx Substance Use: No Substance Use Type: Reports: None Hx Tobacco Use: No Smoking Status (MU): Never Smoked Tobacco Review of Systems Positive: Other - pos: elevated BP Positive: Nausea Musculoskeletal: Other - pos: mild back pain btwn shoulders, resolved Neurological: Other - pos: dizziness/lightheadedness, resolved All Other Systems Reviewed And Are Negative: Yes Physical Exam - Summary Physical Exam Summary: Appearance: Well-appearing, Well-nourished, lying in bed comfortably Skin: Warm, dry, no obvious rash Eyes: sclera anicteric, no conjunctival pallor ENT: mucous membranes moist, pharynx appears normal Neck: Supple, nontender Respiratory: Clear to auscultation, no signs of respiratory distress Cardiovascular: Normal S1, S2. No murmurs. Normal distal pulses in tibial and radial bilaterally. Abdomen: Soft, nontender, normal active bowel sounds present Musculoskeletal: Normal, Strength/ROM Intact Neurological: A&Ox3, awake and alert, mentation is normal, speech is fluent and appropriate Psychiatric: affect is normal, does not appear anxious or depressed Triage Information Reviewed: Yes Vital Signs On Initial Exam: Initial Vitals Temp Pulse Resp BP Pulse Ox 97.6 F 72 18 146/93 99 06/15/18 20:16 06/15/18 20:16 06/15/18 20:16 06/15/18 20:16 06/15/18 20:16 Vital Signs Reviewed: Yes Diagnostics - Vital Signs Vital Signs Temp Pulse Resp BP Pulse Ox 06/15/18 20:16 97.6 F 72 18 146/93 99 - Laboratory Lab Statement: Any lab studies that have been ordered have been reviewed, and results considered in the medical decision making process. - EKG 2031 Cardiac Rate: NL - 64 bpm EKG Rhythm: Sinus Rhythm Summary of EKG Findings: NSR at 64 BPM, P waves, QRS complex, and T waves are within normal limits, T waves and intervals are normal, no ischemic changes Re-Evaluation - Re-Evaluation 1 Re-Evaluation Time: 21:13 Dizzy Course/Dx - Course Course Of Treatment: Pt is a 63 y/o F referred from [facility] [place] presenting with sudden- onset lightheadedness that spontaneously resolved at 1500. She had pacemaker surgery two weeks ago, because her heart was stopping. She sees Dr. Posey, cardiology. EKG shows NSR at 64 BPM, P waves, QRS complex, and T waves are within normal limits, T waves and intervals are normal, no ischemic changes. 2048: Consulted with Dr. Posey, cardiology, who recommended interrogation of the pacemaker. 2111: Spoke with Zeb from [employer], pacemaker is working correctly. Will discharge patient home. - Diagnoses Provider Diagnoses: Dizziness, nonspecific - Provider Notifications Discussed Care Of Patient With: Curly Posey - cardiology Time Discussed With Above Provider: 20:49 Instructed by Provider To: Other - Recommends interrogating the pacemaeker. Discharge - Sign-Out/Discharge Documenting (check all that apply): Patient Departure - DC Patient Received Moderate/Deep Sedation with Procedure: No - Discharge Plan Condition: Good Disposition: HOME Patient Education Materials: Near Syncope (ED) Referrals: Curly Posey MD [Medical Doctor] - If Needed - Billing Disposition and Condition Condition: GOOD Disposition: Home - Attestation Statements Document Initiated by Scribe: Yes Documenting Scribe: Eduar Leavitt Provider For Whom Scribe is Documenting (Include Credential): Dr. Jeison Borjas MD Scribe Attestation: Eduar Alvarez scribed for Dr. Jeison Borjas MD on 06/16/18 at 0428. Scribe Documentation Reviewed: Yes Provider Attestation: The documentation as recorded by the slavaibEduar leslie accurately reflects the service I personally performed and the decisions made by , Dr. Jeison Borjas MD Status of Scribe Document: Viewed
[2018-06-15 21:54] VITALS: BP 142/87
== END 2018-06-15 21:53 | disposition home or self-care (01) ==
LOC: ED 20:11
DX: R42 Dizziness and giddiness (principal); R11.0 Nausea; R03.0 Elevated blood-pressure reading, without diagnosis of hypertension; M54.6 Pain in thoracic spine; Z95.810 Presence of automatic (implantable) cardiac defibrillator; G43.909 Migraine, unspecified, not intractable, without status migrainosus; Z88.2 Allergy status to sulfonamides; Z88.8 Allergy status to other drugs, medicaments and biological substances
CPT/HCPCS: 93005; 99282